=== PATIENT | female | born 1955 | race Caucasian/White ===

== ENCOUNTER 2018-08-11 16:24 | Emergency (ER) | payer OTHER ==
--- OUTSIDE RECORDS SUMMARY | 2018-08-11 16:27 | XMS REPORT | Summary of Care ---
:1955 Author Organization [facility] Address [address] [place], [place] [address]- Encounter HQ Chris_lacey(FIN) [id number] Date(s): 08/06/16 - 08/06/16 [facility] [address] [facility] [address] [address] [place] [phone] Discharge Disposition: Home or Self Care Attending Physician: Jerson Marie MD Referring Physician: Jerson Marie MD Vital Signs Most recent to oldest [Reference Range]: 1 Height 160.02 cm (08/06/16 12:57 PM) Temperature Oral [96.4-99.1 DegF] 97.8 DegF (08/06/16 12:57 PM) Blood Pressure [90-140/60-90 mmHg] 102/65 mmHg (08/06/16 12:57 PM) Peripheral Pulse Rate [60-100 bpm] 74 bpm (08/06/16 12:57 PM) Weight 71.42 kg (08/06/16 12:57 PM) Body Mass Index 27.89 m2 (08/06/16 12:57 PM) Problem List Condition Effective Dates Status Health Status Informant Degenerative cervical spinal Active stenosis(Confirmed) Diabetes mellitus type 2(Confirmed) Active Diabetes mellitus type 2(Confirmed) Active Obesity(Confirmed) Active Thrombocytopenia(Confirmed) Active Allergies, Adverse Reactions, Alerts Substance Reaction Severity Status [email or web address] Active sulfa drugs Active 1rash Medications No Known Medications Results No data available for this section Immunizations Given and Recorded Vaccine Date Status Refusal Reason influenza virus vaccine, inactivated 06/18/15 Given pneumococcal 13-valent vaccine 07/31/15 Given pneumococcal 23-valent vaccine 06/14/12 Recorded Procedures Procedure Date Related Diagnosis Body Site section1 section2 Colonoscopy Endoscopy [id number] Social History Social History Type Response Substance Abuse Use: None. Exercise 1 Alcohol Current2 Smoking Status Never smoker; Exposure to Tobacco Smoke None; Cigarette Smoking Last 365 Days No; Reg Smoking Cessation Counseling No 1Mild [id number] ALCOHOL USE Assessment and Plan No data available for this section
--- OUTSIDE RECORDS SUMMARY | 2018-08-11 16:27 | XMS REPORT | Summary of Care ---
:1955 Author Organization [facility] Address [address] [place], [place] [address]- Encounter HQ Encntr_alinaga(FIN) [id number] Date(s): 08/13/16 - 08/13/16 [facility] [address] [place] [address]- [phone] Discharge Disposition: Home or Self Care Attending Physician: Jerson Marie MD Vital Signs No data available for this section Problem List Condition Effective Dates Status Health Status Informant Degenerative cervical spinal Active stenosis(Confirmed) Diabetes mellitus type 2(Confirmed) Active Diabetes mellitus type 2(Confirmed) Active Obesity(Confirmed) Active Thrombocytopenia(Confirmed) Active Allergies, Adverse Reactions, Alerts Substance Reaction Severity Status [email or web address] Active sulfa drugs Active 1rash Medications No data available for this section Results No data available for this section Immunizations Given and Recorded Vaccine Date Status Refusal Reason influenza virus vaccine, inactivated 06/18/15 Given pneumococcal 13-valent vaccine 07/31/15 Given pneumococcal 23-valent vaccine 06/14/12 Recorded Procedures Procedure Date Related Diagnosis Body Site section1 section2 Colonoscopy Endoscopy [id number] Social History Social History Type Response Substance Abuse Use: None. Exercise 1 Alcohol Current2 Smoking Status Never smoker; Exposure to Tobacco Smoke None; Cigarette Smoking Last 365 Days No; Reg Smoking Cessation Counseling No 1Mild [id number] ALCOHOL USE Assessment and Plan No data available for this section
--- OUTSIDE RECORDS SUMMARY | 2018-08-11 16:27 | XMS REPORT | Summary of Care ---
:1955 Author Organization [facility] Address [address] [place], [place] [address]- Encounter HQ Encntr_alinaga(FIN) [id number] Date(s): 07/17/16 - 07/17/[address] [address]- [place] Discharge Disposition: Home or Self Care Attending Physician: Jerson Marie MD Referring Physician: Jerson Marie MD Vital Signs No [...] Date Related Diagnosis Body Site section1 section2 [id number] Social History Social History Type Response Substance Abuse Use: None. Exercise 1 Alcohol Current2 Smoking Status Never smoker; Exposure to Tobacco Smoke None; Cigarette Smoking Last 365 Days No; Reg Smoking Cessation Counseling No 1Mild [id number] ALCOHOL USE Assessment and Plan No data available for this section
--- OUTSIDE RECORDS SUMMARY | 2018-08-11 16:27 | XMS REPORT | Continuity of Care Document ---
:1955 Author Organization Interface Problems Problem Status Onset Classification Date Comments Source Date Reported FOLLOW UP Active 02/19/[address] Center I65.29 Active 12/30/19 [facility] [address] [place] I65.29 - OCCLUSION Active 11/26/19 [facility] AND STENOSIS OF [address] [place] UNSP Noninfective 10/28/19 01/29/2018 [facility] gastroenteritis and 18 [place] colitis, unspecified DDC // F/U VISIT Active 04/09/[address] BDDC- IRON Active 02/14/20 [facility] DEFICIENCY ANEMIA [address] [place] [address] NEW PT Active 08/28/[address] F/U Active 08/13/[address] PROCEDURE FOLLOW UP Active 07/25/[address] BDDC/ D50.9 IRON Active 06/17/20 [facility] DEFICIENCY ANEMIA, [address] [place], [place] [address]P Center ANEMIA / COLON Active 05/19/20 [facility] SCREENING [address] [place] [address] Degenerative Active Problem 03/13/2018 KAY cervical spinal [place], stenosis [facility] Diabetes mellitus Active Problem 03/13/2018 [facility] type 2 [place],[facility] Obesity Active Problem 03/13/2018 KAY [facility] Thrombocytopenia Active Problem 03/13/2018 KAY Mack,[facility] Chronic ITP (<span Active Problem 03/31/2018 [facility] ID="[id number]">C Medical onfirmed</span>) Center, [facility] Chronic diarrhea Active Problem 03/31/2018 [facility], KAY [facility] Chronic thyroiditis Active Problem 03/31/2018 [facility], KAY [facility], [facility] Liver cirrhosis Active Problem 03/31/2018 [facility], [facility] Degenerative Active Problem 03/31/2018 [facility] cervical spinal [place], stenosis Medical Group Diabetes mellitus Active Problem 03/31/2018 [facility] type 2 [place], [facility] Elevated INR Resolved Problem 03/31/2018 [facility], OPID [place], [facility] Iron deficiency Active Problem 03/31/2018 [facility] anemia [facility], [facility] [place], [facility] Obesity Active Problem 03/31/2018 [facility] [place], [facility] Thrombocytopenia Active Problem 03/31/2018 [facility] [place], [facility] Ascites Active Problem 04/02/2018 [facility] Group, [facility] [place] Chronic ITP (<span Active Problem 04/02/2018 [facility] ID="[id number]">C Medical onfirmed</span>) Center, [facility] [place], [facility] [place] Chronic diarrhea Active Problem 04/02/2018 [facility], OPID [place], [facility] [place] Chronic thyroiditis Active Problem 04/02/2018 [facility], OPID [place], [facility] [place] Liver cirrhosis Active Problem 04/02/2018 [facility], OPID [place], [facility] [place] Degenerative Active Problem 04/02/2018 [facility] cervical spinal [place], stenosis [facility] [place] Diabetes mellitus Active Problem 04/02/2018 [facility] type 2 [place], [facility] [place] Elevated INR Resolved Problem 04/02/2018 [facility], OPID [place], [facility] [place] Iron deficiency Active Problem 04/02/2018 [facility], OPID [place], [facility] [place] Obesity Active Problem 04/02/2018 [facility] [place], [facility] [place] Thrombocytopenia Active Problem 04/02/2018 [facility] [place], [facility] [place] Diverticulitis of 01/29/2018 [facility] intestine, part [place] unspecified, with perforation and abscess with bleeding Iron deficiency 01/29/2018 [facility] anemia, unspecified [place] Type 2 diabetes 01/29/2018 [facility] mellitus without [place] complications Calculus of 01/29/2018 [facility] gallbladder without [place] cholecystitis without obstruction Unspecified 01/29/2018 [facility] cirrhosis of liver [place] Diaphragmatic 01/29/2018 [facility] hernia without [place] obstruction or gangrene Splenomegaly, not 01/29/2018 [facility] elsewhere [place] classified Portal hypertension 01/29/2018 [facility] [place] Medications Medication Details Route Status Patient Ordering Order Source Instructions Provider Date sertraline 50 mg oral See Active tablet Instruction 2018 Medical s, # 90 Group tab, Refill(s) 2, TAKE 1 TABLET DAILY, [id number] empagliflozin 10 MG 10 mg=1 Active Oral Tablet tab, PO, 2018 Medical [Jardiance] QAM, # 90 Group tab, 0 Refill(s), [facility] Hydrochlorothiazide 1 tab, PO, Active 12.5 MG / irbesartan Daily, # 90 2018 Medical 300 MG Oral Tablet tab, 0 Group Refill(s), [facility]: [facility] levothyroxine 100 mcg See No (0.1 mg) oral tablet Instruction Longer 2018 Medical s, # 90 Active Group tab, TAKE 1 TABLET BY MOUTH EVERY DAY, Pharmacy: [facility]67 metFORMIN 500 mg oral See Active tablet, extended Instruction 2018 Medical release s, # 270 Group tab, Refill(s) 1, TAKE 3 TABLETS BY MOUTH EVERY DAY, [facility] benzonatate 100 MG 100 mg=1 Active Oral Capsule cap, PO, 2018 Medical [Tessalon Perles] TID, X 10 Group day, # 30 cap, 0 Refill(s), [facility] POLYETHYLENE GLYCOL 17 gm, PO, No [place] 3350 142 MG/ML Oral Bedtime, Longer 2016 Medical Solution [Miralax] Dissolve in Active Center 8 oz. of water, X 7 day, # 1 ea, 1 Refill(s), [facility]: [facility] ferrous sulfate 325 325 mg=1 Active [place] mg oral enteric tab, PO, 2017 Medical coated tablet TID, Start Center with 1 tab daily x 3 days, advance as tolerate, use stool softners and laxatives as needed for constipatio n, # 90 tab, 3 Refill(s), [facility] biotin PO, Daily, Active [place] 0 Refill(s) 2017 [facility] GoLYTELY oral powder See Active [facility] [place] for reconstitution Instruction 2016 Medical s, Take as Center directed by physician. Give jug for colonoscopy ., # 1 ea, 0 Refill(s), Pharmacy: [facility] GoLYTELY oral powder See Active 06/17/ [facility] for reconstitution Instruction 2016 Medical s, Take as Center directed by physician. Give jug for colonoscopy ., # 1 ea, 0 Refill(s), Pharmacy: [facility] Allergies, Adverse Reactions, Alerts Substance Category Reaction Severity Reaction Status Date Comments Source type Reported codeine<sup Assertion Propensity Active rash [facility] >1</sup> to adverse [place] reactions to drug sulfa drugs Assertion Drug Active [facility] allergy [place] Immunizations Immunization Date Site Status Last Comments Source Given Updated pneumococcal Left completed [place] [facility] 13-valent vaccine 5 Deltoid [place],[facility] pneumococcal Left completed [place] OPID 13-valent vaccine 5 Deltoid [place], [facility] pneumococcal Left completed [facility] 13-valent vaccine 5 Deltoid [place], [facility] [place] influenza virus Left completed [place] [facility] vaccine, 5 Deltoid [place], inactivated [facility] influenza virus Left completed [facility] OP[facility] vaccine, 5 Deltoid [place], inactivated [facility] influenza virus Left completed [facility] OPID vaccine, 5 Deltoid [place], inactivated [facility] [place] pneumococcal completed [facility] OPID 23-valent vaccine 2 [place],[facility] pneumococcal completed [facility] OPID 23-valent vaccine 2 [place], [facility] pneumococcal completed [facility] OPID 23-valent vaccine 2 [place], [facility] [place] Results Order Results Value Reference Date Interpretation Comments Source Name Range Liver w Liver w DOPPLER ULTRASOUND LIVER VESSELS 03/30 - [facility] Liver Liver /2017 - [place] vessels vessels Doppler Doppler US US HISTORY: - Cirrhosis; Read by: Jerson Grace MD Dictated Date/time: 03/30/18 15:43 Electronically Signed by: Jerson Grace MD 03/30/18 15:51 FINAL REPORT COMPARISON: CT abdomen dated 11 20 2017 TECHNIQUE: Grayscale and limited color sonographic evaluation of the liver with Doppler ultrasound of the liver vessels was performed with standard technique. FINDINGS: LIVER: The liver demonstrates mildly nodular contour and marked diffuse coarsening of the parenchymal echotexture compatible with cirrhosis. No heteroechoic liver lesions are seen, but coarsened hepatic echote xture decreases the accuracy to detect liver lesions. LIVER VESSELS: The main, right, and left portal veins show hepatopetal flow. Doppler waveform analysis shows low resistance flow in the hepatic artery. Hepatic veins are patent and demonstrate normal venous waveforms on Doppler analysis. Normal arterial flow is seen within the aorta. IVC is patent. BILE DUCTS: The intrahepatic and extrahepatic bile ducts are not dilated with the common bile duct measuring 3 mm. GALLBLADDER: Shadowing milk of calcium cholelithiasis. No gallbladder wall thickening or pericholecystic fluid. PANCREAS: The visualized pancreas body is normal, the head and tail are obscured by bowel gas. KIDNEY: The right kidney measures 11.1 x 4.1 x 4.8 cm. The left kidney measures cm. There is normal renal contour and morphology, with normal parenchymal echotexture. There is no hydronephrosis. ASCITES: No ascites is identified about the liver. IMPRESSION: 1. Anatomical changes within the liver consistent with cirrhosis. No heteroechoic liver lesions are seen, but coarsened hepatic echotexture decreases the accuracy to detect liver lesions. 2. Normal liver vessels. Portal vein hepatopedal flow. 3. Cholelithiasis. SL: [id number] Carotid Carotid EXAM: US CAROTID DOPPLER 01/15 - [facility] artery artery /2017 - [place] Doppler Doppler bilat US bilat US CLINICAL INDICATION: 62 years year-old Female with I65.29 Occlusion and stenosis of unspecified carotid artery - I65.29 Occlusion and stenosis of unspecified carotid artery Read by: Edmundo Pike MD Dictated Date/time: 01/15/18 16:03 Electronically Signed by: Edmundo Pike MD 01/15/18 16:05 FINAL REPORT COMPARISON: None TECHNIQUE: Alcaraz-scale, color Doppler and spectral Doppler of the carotid arteries was performed. Any reported ICA stenoses indirectly reference the distal internal carotid diameter as the denominator for the sten osis measurement, utilizing consensus panel criteria. FINDINGS: RIGHT: Mild plaque ICA PSV 105 cm/sec CCA PSV 81.3 cm/sec ICA/CCA ratio 1.3 Vertebral flow is antegrade. External carotid artery is patent. LEFT: Mild plaque ICA PSV 109 cm/sec CCA PSV 102 cm/sec ICA/CCA ratio 1.1 Vertebral flow is antegrade. External carotid artery is patent. IMPRESSION: 1. RIGHT: ICA stenosis <50 % by velocity criteria. 2. LEFT: ICA stenosis <50 % by velocity criteria. Consensus panel Doppler US criteria for diagnosis of ICA stenosis: Stenosis (%) ICA PSV (cm/sec) ICA/CCA ratio -- <50 <125 <2.0 50-69 125-230 2.0-4.0 >70 but less than >230 >4.0 near occlusion Near occlusion High, low, or Variable undetectable SL: [id number] Liver Abd Liver EXAM: CT ABDOMEN WITHOUT AND WITH CONTRAST 10/23 - [facility] Protocol Protocol /2018 - [place] w/wo IV w/wo IV contrast contrast CT CT DATE: 10/23/2017 Read by: Anabel Mata MD Dictated Date/time: 10/23/17 16:58 Electronically Signed by: Anabel Mata MD 10/23/17 17:09 FINAL REPORT INDICATION: Liver cirrhosis, LARIOS ADDITIONAL INFORMATION: None. COMPARISON: 11/21/2016 TECHNIQUE: Volumetric CT acquisition of the abdomen both prior to and following intravenous contrast, in precontrast, arterial, portal venous and delayed phases of enhancement, per the dynamic liver pro tocol. Axial, sagittal and coronal reconstructions. IV contrast: 100 mL Omnipaque 350 Enteric contrast: None. DLP: 2900 mGy-cm FINDINGS: Lines, tubes and hardware: None. Lower thorax: Clear. Liver: Craniocaudal length: 13.4 cm. Density: Normal. Surface: Nodular Hepatic masses: None. Non-enhancing/cystic hepatic lesions: None. Hepatic vessels: Hepatic arterial anatomy: Conventional. Arterial stenoses: None. Portal vein: Patent. Caliber: 1.2 cm Portosystemic collaterals: A recanalized umbilical vein is present. Gastroesophageal, perisplenic and pelvic collaterals are again seen. Hepatic, splenic and superior mesenteric veins, and IVC: Patent. Regional lymph nodes: Multiple borderline upper abdominal lymph nodes are noted. Biliary tree: No intra- or extrahepatic biliary ductal dilation. Gallbladder: Gallstones are noted. Pancreas: Normal. Spleen: Enlarged measuring 16.5 cm in the midclavicular line. Adrenals: Normal. 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 Focal cortical scarring is noted. The kidneys enhance symmetrically. No hydronephrosis is seen. Normal excretion of contrast is noted into normal caliber ureters. Gastrointestinal tract: Small hiatal hernia is noted. Visualized small bowel loops are normal caliber. Visualized colon is unremarkable without inflammatory changes or wall thickening. Peritoneum, mesentery and retroperitoneum: Mesenteric edema is noted, not significantly changed. There is minimal fluid in the left paracolic gutter which may represent a very small amount of ascites. Distant lymph nodes: Normal. Vasculature: Normal. Bones: No acute abnormality. Soft tissues: Normal. IMPRESSION: 1. Cirrhotic liver with stigmata of portal hypertension including splenomegaly, mesenteric edema, portosystemic collaterals and a very small amount of ascites. 2. No focal hepatic lesions are seen. 3. Cholelithiasis. 4. Small hiatal hernia. Abd Liver Abd Liver EXAM: CT ABDOMEN WITH AND WITHOUT CONTRAST 11/21 - [facility] Protocol Protocol /2016 - [place] w/wo IV w/wo IV contrast contrast CT CT DATE: 11/21/2016 at 1256 hours Read by: Ayo Moran MD Dictated Date/time: 11/21/16 14:01 Electronically Signed by: Ayo Moran MD 11/21/16 14:11 FINAL REPORT INDICATION: Cirrhosis ADDITIONAL INFORMATION: None. COMPARISON: Ultrasound dated 08/13/2016 at 1126 hours TECHNIQUE: Volumetric CT acquisition of the abdomen both prior to and following intravenous contrast, in precontrast, arterial, portal venous and delayed phases of enhancement, per the dynamic liver pro tocol. Axial, sagittal and coronal reconstructions. IV contrast: 100 mL of Omnipaque 300 Enteric contrast: None. DLP: 2218.08 mGy-cm FINDINGS: Lines, tubes and hardware: None. Lower thorax: * Minimal bibasilar atelectasis. Liver: Craniocaudal length: 14.1 cm. Density: Normal. Surface nodularity: Mild Hepatic masses: None. Non-enhancing/cystic hepatic lesions: None. Hepatic vessels: Hepatic arterial anatomy: Conventional. Arterial stenoses: None. Portal vein: Patent. Caliber: 1.2 Portosystemic collaterals are identified including gastroesophageal, pelvic and perisplenic collaterals, as well as patent umbilical vein. Hepatic, splenic and superior mesenteric veins, and IVC: Patent. Regional lymph nodes: Normal. Biliary tree: No intra- or extrahepatic biliary ductal dilation. Gallbladder: * Gallstones are identified layering dependently. * No inflammation. Pancreas: Normal. Spleen: Enlarged, measuring 16.9 x 15.5 x 7.5 cm. Adrenals: Normal. Kidneys and ureters: * Normal concentration and excretion of contrast. * Both kidneys are malrotated with anteriorly facing renal pelves. * Foci of cortical thinning are in keeping with scarring. Gastrointestinal tract: Normal caliber. Peritoneum, mesentery and retroperitoneum: * Mild to moderate mesenteric edema * No ascites. * No free air or organized fluid collections. Distant lymph nodes: Normal. Vasculature: Normal. Bones: No acute abnormality. Soft tissues: Normal. IMPRESSION: 1. Nodular hepatic contours in keeping with cirrhosis and stigmata of portal hypertension including splenomegaly, mesenteric edema, and portosystemic collaterals. 2. No focal hepatic lesions to suggest hepatocellular carcinoma (HCC). 3. Cholelithiasis without evidence of cholecystitis RECOMMENDATIONS: Continued surveillance Abdomen Abdomen INDICATION: Cirrhosis 08/13 - [facility] - [place] PROCEDURE: The right upper quadrant was evaluated with real-time imaging and color Doppler imaging. Read by: Scotty Verdin MD Dictated Date/time: 08/13/16 13:33 Electronically Signed by: Scotty Verdin MD 08/13/16 13:40 FINAL REPORT FINDINGS: The proximal body of the pancreas was unremarkable. The head and uncinate process as well as most of the tail were obscured by overlying gas. The right lobe of liver is 12.2 cm in span. The liver has increased echogenicity with no focal mass lesions. The margins remain smooth. No biliary dilatation is present. The portal vein is 1.1 cm in shay meter and has hepatopedal flow. Recanalization of the umbilical vein is noted. The common bile duct is 4.1 mm in diameter. The gallbladder wall is 1.5 mm in thickness, and the sonographic [place] sign was negative. Sludge and stones are present within the gallbladder lumen. The stones appear small and are mobile. There is no pericholecystic fluid. The right kidney is 12.2 cm in span. It has normal parenchymal echogenicity with no focal mass or cyst. There is no hydronephrosis, and perfusion is normal. No ascites was present. IMPRESSION: 1. Evidence for portal venous hypertension with recanalization of the umbilical vein. 2. Increased echogenicity within the liver likely related to underlying cirrhosis. 3. Cholelithiasis. No evidence for acute cholecystitis. Vital Signs Vital Sign Value Date Comments Source Weight 74.091 03/10/2018 [facility] BMI Calculated 29.88 03/10/2018 [facility] Height 157.48 cm 03/10/2018 [facility] Heart Rate 74 03/10/2018 [facility] Systolic (mm Hg) 106 03/10/2018 [facility] Diastolic (mm Hg) 63 03/10/2018 [facility] Respitory Rate 16 03/10/2018 [facility] BMI Calculated 32.64 01/20/2018 [facility] Weight 78.352 01/20/2018 [facility] Height 154.94 cm 01/20/2018 [facility] Respitory Rate 18 01/20/2018 [facility] Temperature Oral (F) 97.6 F 01/20/2018 [facility] Heart Rate 74 01/20/2018 [facility] Systolic (mm Hg) 149 01/20/2018 [facility] Diastolic (mm Hg) 75 01/20/2018 [facility] BMI Calculated 30.98 01/14/2018 [facility] Height 157.48 cm 01/14/2018 [facility] Weight 76.818 01/14/2018 [facility] Heart Rate 70 01/14/2018 [facility] Respitory Rate 16 01/14/2018 [facility] Systolic (mm Hg) 117 01/14/2018 [facility] Diastolic (mm Hg) 67 01/14/2018 [facility] Height 157.48 cm 11/25/2017 [facility] BMI Calculated 30.8 11/25/2017 [facility] Weight 76.381 11/25/2017 [facility] Group Systolic (mm Hg) 157 11/25/2017 [facility] Group Diastolic (mm Hg) 77 11/25/2017 [facility] Group Respitory Rate 18 11/25/2017 [facility] Group Heart Rate 73 11/25/2017 [facility] Weight 70.455 04/09/2017 [facility] BMI Calculated 27.51 04/09/2017 [facility] Height 160.02 cm 04/09/2017 [facility] Respitory Rate 16 04/09/2017 [facility] Heart Rate 63 04/09/2017 [facility] Systolic (mm Hg) 111 04/09/2017 [facility] Height 160.02 cm 11/27/2016 [facility] BMI Calculated 28.4 11/27/2016 [facility] Weight 72.727 11/27/2016 [facility] Systolic (mm Hg) 111 11/27/2016 [facility] Diastolic (mm Hg) 56 11/27/2016 [facility] Heart Rate 67 11/27/2016 [facility] Respitory Rate 16 11/27/2016 [facility] Height 160.02 cm 09/04/2016 [facility] BMI Calculated 29 09/04/2016 [facility] Weight 74.261 09/04/2016 [facility] Temperature Oral (F) 97.7 F 09/04/2016 [facility] Systolic (mm Hg) 122 09/04/2016 [facility] Diastolic (mm Hg) 71 09/04/2016 [facility] Heart Rate 70 09/04/2016 [facility] Height 160.02 cm 08/27/2016 [facility] BMI Calculated 28.67 08/27/2016 [facility] Weight 73.409 08/27/2016 [facility] Heart Rate 66 08/27/2016 [facility] Systolic (mm Hg) 19 08/27/2016 [facility] Diastolic (mm Hg) 72 08/27/2016 [facility] Height 160.02 cm 08/06/2016 [facility] Systolic (mm Hg) 102 08/06/2016 [facility] Diastolic (mm Hg) 65 08/06/2016 [facility] Temperature Oral (F) 97.8 F 08/06/2016 [facility] Heart Rate 74 08/06/2016 [facility] Weight 71.42 08/06/2016 [facility] BMI Calculated 27.89 08/06/2016 [facility] Weight 72.5 06/17/2016 [facility] BMI Calculated 28.31 06/17/2016 [facility] Heart Rate 71 06/17/2016 [facility] Temperature Oral (F) 96.7 F 06/17/2016 [facility] Height 160.02 cm 06/17/2016 [facility] Systolic (mm Hg) 118 06/17/2016 [facility] Diastolic (mm Hg) 66 06/17/2016 [facility] Encounters Location Location Encounter Encounter Reason Attending ADM DC Status Source Details Type Number For Provider Date Date Visit Outpatient [id number] KIMBERLY 07/31 Active [facility] ESP [place] Outpatient [id number] KIMBERLY 10/31 [facility] ESPER [place] Outpatient [id number] KIMBERLY 10/31 Active [facility] ESP [place] Outpatient [id number] KIMBERLY 01/28 [facility] ESP [place] Outpatient [id number] KIMBERLY 02/05 [facility] ESP [place] Outpatient [id number] KIMBERLY 04/09 [facility] ESP [place] Outpatient [id number] KIMBERLY 04/09 [facility] ESP [place] Outpatient [id number] [facility]IMBERLY 04/21 [facility] [id number] Jerson 06/17 06/18 [facility] [id number] Jerson 07/17 07/17 [facility] Outpatient [place] /2015 [facility] Outpatient [id number] Jerson 08/06 08/07 [facility] [place] [facility] [id number] Jerson 08/13 08/14 [facility] [id number] Jerson 08/27 08/28 [facility] [id number] [place] 09/04 09/05 [facility] [id number] KIMBERLY 11/10 Active [facility] Outpt Diag [id number] [place] 11/21 11/22 [facility] Outpatient Services [facility] [place] [facility] [place] [facility] [id number] [place] 11/27 12/27 [facility] [id number] [place] 03/03 03/03 [facility] Outpatient [facility] Medical [facility] Outpatient [id number] [place] 04/09 04/10 [facility] Medical EDDC [facility] Outpatient [id number] KIMBERLY 04/22 Active [facility] [place] Outpatient [id number] KIMBERLY 05/26 Active [facility] [place] Outpatient [id number] KIMBERLY 07/02 Active [facility] [place] Outpatient [id number] KIMBERLY 09/24 [facility] [place] [facility] [id number] Kimberly 09/24 09/24 Internal Pre[facility]Reg [facility] [facility] Phone [id number] 09/25 09/27 Internal Message /2017 [facility] Phone [id number] 09/28 09/30 Internal Message /2017 [facility] Outpt Diag [id number] Lewis 10/23 10/24 [facility] [id number] KIMBERLY 11/25 [facility] Outpatient [id number] Kimberly 11/25 11/26 Internal [place] /2017 [facility] Phone [phone] 12/22 12/24 Internal Message /2017 [facility] Outpatient [id number] Lewis 01/14 01/15 [facility] [id number] KIMBERLY 01/20 [facility] Outpatient [id number] Kimberly 01/20 01/21 Internal [place] /2017 [facility] Phone [phone] 01/25 01/27 Internal Message /2017 [facility] [id number] Lewis 03/10 03/11 [place] [facility] [place] /2017 [facility] Outpt Diag [id number] Lewis 03/30 03/31 [facility] [place] /2017 [place] [facility] [place] [id number] KIMBERLY 04/22 [facility] Outpatient [id number] KIMBERLY 07/[address] [place] [address] [facility] Procedures Procedure Code Date Perfomer Comments Source Date of last PAP [id number] 09/21/2016 Medical smear Group Mammogram [id number] 09/21/2016 Medical Group Date of last PAP [id number] 09/21/2016 [facility] smear [place] Mammogram [id number] 09/21/2016 [facility] [place] Date of last PAP [id number] 09/21/2016 [facility] smear [place] Mammogram [id number] 09/21/2016 [facility] [place] Date of last PAP [id number] 09/21/2016 [facility] [place] [facility] Mammogram [id number] 09/21/2016 [facility] [id number] 1981 OP[facility] section<sup>1</sup [place] > [id number] 1986 [facility] section<sup>2</sup [place] > Colonoscopy [id number] [facility] [place] Endoscopy [id number] [facility] [place] [id number] 1981 [place] [facility]<sup>[facility]sup [facility] > [id number] 1986 [place] section<sup>2</sup [facility] > Colonoscopy [id number] [facility] Endoscopy [id number] [facility] [id number] 1981 Medical section<sup>1</sup Group > [id number] 1986 Medical section<sup>2</sup Group > Colonoscopy [id number] Medical Group Endoscopy [id number] Medical Group [id number] 1981 [facility] section<sup>1</sup [place] > [id number] 1986 [facility] section<sup>2</sup [place] > Colonoscopy [id number] [facility] [place] Endoscopy [id number] [facility] [place]
--- OUTSIDE RECORDS SUMMARY | 2018-08-11 16:27 | XMS REPORT | Summary of Care ---
:1955 Author Organization [facility] Address [address] [phone]- Encounter HQ Vamshi(FIN) [id number] Date(s): 06/17/16 - 06/17/16 [facility] [address] [facility] [facility] [address] [place] [address] [phone] Discharge Disposition: Home or Self Care Attending Physician: Jerson Marie MD Referring Physician: Miroslava Owens MD Vital Signs Most recent to oldest [Reference Range]: 1 Height 160.02 cm (06/17/16 1:33 PM) Temperature Oral [96.4-99.1 DegF] 96.7 DegF (06/17/16 1:33 PM) Blood Pressure [90-140/60-90 mmHg] 118/66 mmHg (06/17/16 1:33 PM) Peripheral Pulse Rate [60-100 bpm] 71 bpm (06/17/16 1:33 PM) Weight 72.5 kg (06/17/16 1:33 PM) Body Mass Index 28.31 m2 (06/17/16 1:33 PM) Problem List Condition Effective Dates Status Health Status Informant Degenerative cervical spinal Active stenosis(Confirmed) Diabetes mellitus type 2(Confirmed) Active Diabetes mellitus type 2(Confirmed) Active Obesity(Confirmed) Active Thrombocytopenia(Confirmed) Active Allergies, Adverse Reactions, Alerts Substance Reaction Severity Status codeine1 Active sulfa drugs Active 1rash Medications GoLYTELY oral powder for reconstitution See Instructions, Take as directed by physician. Give jug for colonoscopy., # 1 ea, 0 Refill(s), Pharmacy: [facility]/pharmacy #[id number] Start Date: 06/17/16 Status: OrderedGoLYTELY oral powder for reconstitution See Instructions, Take as directed by physician. Give jug for colonoscopy., # 1 ea, 0 Refill(s), Pharmacy: [facility]/pharmacy #[id number] Start Date: 06/18/16 Status: Ordered Results No data available for this section Immunizations Given and Recorded Vaccine Date Status Refusal Reason influenza virus vaccine, inactivated 06/18/15 Given pneumococcal 13-valent vaccine 07/31/15 Given pneumococcal 23-valent vaccine 06/14/12 Recorded Procedures Procedure Date Related Diagnosis Body Site section1 section2 [id number] Social History Social History Type Response Substance Abuse Use: None. Exercise 1 Alcohol Current2 Smoking Status Never smoker; Exposure to Tobacco Smoke None; Cigarette Smoking Last 365 Days No; Reg Smoking Cessation Counseling No 1Mild [id number] ALCOHOL USE Assessment and Plan No data available for this section
--- OUTSIDE RECORDS SUMMARY | 2018-08-11 16:28 | XMS REPORT | Summary of Care ---
:1955 Author Organization [facility] Internal [facility] Address [address] [place] [address] [address] [place] [address]- Encounter HQ Chris_lacey(FIN) [id number] Date(s): 09/24/17 - 09/24/17 [facility] Internal Medicine [place] [id number] [facility] [place] [address] [place] [address]- Attending Physician: Kimberly Okeefe MD Vital Signs No data available for this section Problem List Condition Effective Dates Status Health Status Informant Chronic ITP (idiopathic Active thrombocytopenia)(Confirmed) Chronic diarrhea(Confirmed) Active Chronic thyroiditis(Confirmed) Active Liver cirrhosis secondary to Active LARIOS(Confirmed) Degenerative cervical spinal Active stenosis(Confirmed) Diabetes mellitus type 2(Confirmed) Active Diabetes mellitus type 2(Confirmed) Active Elevated INR(Confirmed) Active Iron deficiency anemia(Confirmed) Active Obesity(Confirmed) Active Thrombocytopenia(Confirmed) Active Allergies, Adverse Reactions, Alerts Substance Reaction Severity Status sulfa drugs Active codeine1 Active 1rash Medications No data available for this section Results No data available for this section Immunizations Given and Recorded Vaccine Date Status Refusal Reason pneumococcal 13-valent vaccine 07/31/15 Given influenza virus vaccine, inactivated 06/18/15 Given pneumococcal 23-valent vaccine 06/14/12 Recorded Procedures Procedure Date Related Diagnosis Body Site section1 section2 Colonoscopy Endoscopy [id number] Social History Social History Type Response Substance Abuse Use: None. Exercise 1 Alcohol Past2 Smoking Status Never smoker; Exposure to Tobacco Smoke None; Cigarette Smoking Last 365 Days No; Reg Smoking Cessation Counseling No 1Mild [id number] ALCOHOL USE Assessment and Plan No data available for this section
--- OUTSIDE RECORDS SUMMARY | 2018-08-11 16:28 | XMS REPORT | Summary of Care ---
:1955 Author Organization [facility] Internal Medicine [facility] Address [address] [place] [address], [address] [place] [address]- Encounter HQ Chris_lacey(FIN) [id number] Date(s): 09/28/17 - 09/29/17 [facility] Internal Medicine [facility] [address] [facility] [place] [address]- Vital Signs No data available for this section Problem List Condition Effective Dates Status Health Status Informant Chronic ITP (idiopathic Active thrombocytopenia)(Confirmed) Chronic diarrhea(Confirmed) Active Chronic thyroiditis(Confirmed) Active Liver cirrhosis secondary to Active LARIOS(Confirmed) Degenerative cervical spinal Active stenosis(Confirmed) Diabetes mellitus type 2(Confirmed) Active Diabetes mellitus type 2(Confirmed) Active Elevated INR(Confirmed) Resolved Iron deficiency anemia(Confirmed) Active Obesity(Confirmed) Active Thrombocytopenia(Confirmed) Active Allergies, Adverse Reactions, Alerts Substance Reaction Severity Status sulfa drugs Active codeine1 Active 1rash Medications levothyroxine 100 mcg (0.1 mg) oral tablet See Instructions, # 90 tab, TAKE 1 TABLET BY MOUTH EVERY DAY, Pharmacy: [facility] #[id number] Start Date: 09/28/17 Stop Date: 12/01/17 Status: CompletedmetFORMIN 500 mg oral tablet, extended release See Instructions, # 270 tab, Refill(s) 1, TAKE 3 TABLETS BY MOUTH EVERY DAY, [id number] Start Date: 09/28/17 Status: Ordered Results No data available for this section Immunizations Given and Recorded Vaccine Date Status Refusal Reason pneumococcal 13-valent vaccine 07/31/15 Given influenza virus vaccine, inactivated 06/18/15 Given pneumococcal 23-valent vaccine 06/14/12 Recorded Procedures Procedure Date Related Diagnosis Body Site Status Date of last PAP smear 09/2016 Completed Mammogram 09/2016 Completed section1 Completed section2 Completed Colonoscopy Completed Endoscopy Completed [id number] Social History Social History Type Response Substance Abuse Use: None. Exercise 1 Alcohol Past2 Smoking Status Never smoker; Exposure to Tobacco Smoke None; Cigarette Smoking Last 365 Days No; Reg Smoking Cessation Counseling No entered on: 11/25/17 1Mild [id number] ALCOHOL USE Assessment and Plan No data available for this section
--- OUTSIDE RECORDS SUMMARY | 2018-08-11 16:28 | XMS REPORT | Summary of Care ---
:1955 Author Organization [facility] Internal Medicine [facility] Address [address] [place] [address], [address] [place] [address]- Encounter HQ Chris_lacey(FIN) [id number] Date(s): 09/28/17 - 09/29/17 [facility] Internal Medicine [facility] [address] [place] [address]- Vital Signs No data available for this [...] 1 TABLET BY MOUTH EVERY DAY, [facility]acy[id number] Start Date: 09/28/17 Status: OrderedmetFORMIN 500 mg oral tablet, extended release See Instructions, # 270 tab, Refill(s) 1, TAKE 3 TABLETS BY MOUTH EVERY DAY, [id number] Start Date: 09/28/17 Status: Ordered Results No data available for this section Immunizations Given and Recorded Vaccine Date Status Refusal Reason pneumococcal 13-valent vaccine 07/31/15 Given influenza virus vaccine, inactivated 06/18/15 Given pneumococcal 23-valent vaccine 06/14/12 Recorded Procedures Procedure Date Related Diagnosis Body Site Status section1 Completed section2 Completed Colonoscopy Completed Endoscopy Completed [id number] Social History Social History Type Response Substance Abuse Use: None. Exercise 1 Alcohol Past2 Smoking Status Never smoker; Exposure to Tobacco Smoke None; Cigarette Smoking Last 365 Days No; Reg Smoking Cessation Counseling No entered on: 04/22/17 1Mild [id number] ALCOHOL USE Assessment and Plan No data available for this section
--- OUTSIDE RECORDS SUMMARY | 2018-08-11 16:28 | XMS REPORT | Summary of Care ---
:1955 Author Organization [facility] [place] Address [address] [place], [place] [address]- Encounter HQ Mary Jontr_lacey(FIN) [id number] Date(s): 11/21/16 - 11/21/16 [facility] [place] [address] [place] [address]- [phone] Discharge Disposition: Home or Self Care Attending Physician: Lewis Sue MD Vital Signs No data available for [...] Diagnosis Body Site section1 section2 Colonoscopy Endoscopy [id number] Social History Social History Type Response Substance Abuse Use: None. Exercise 1 Alcohol Current2 Smoking Status Never smoker; Exposure to Tobacco Smoke None; Cigarette Smoking Last 365 Days No; Reg Smoking Cessation Counseling No 1Mild [id number] ALCOHOL USE Assessment and Plan No data available for this section
--- OUTSIDE RECORDS SUMMARY | 2018-08-11 16:28 | XMS REPORT | Summary of Care ---
:1955 Author Organization [facility] Address [address] [place], [place] [address]- Encounter HQ Vamshi(FIN) [id number] Date(s): 01/14/18 - 01/14/18 [facility] [address] [facility] [address] [place] [address] [phone] Discharge Disposition: Home or Self Care Attending Physician: Lewis Sue MD Referring Physician: Lewis Sue MD Vital Signs Most recent to oldest [Reference Range]: 1 Height 157.48 cm (01/14/18 1:59 PM) Blood Pressure [90-140/60-90 mmHg] 117/67 mmHg (01/14/18 1:59 PM) Respiratory Rate [14-20 BRMIN] 16 BRMIN (01/14/18 1:59 PM) Peripheral Pulse Rate [60-100 bpm] 70 bpm (01/14/18 1:59 PM) Weight 76.818 kg (01/14/18 1:59 PM) Body Mass Index 30.98 m2 (01/14/18 1:59 PM) Problem List Condition Effective Dates Status [...] drugs Active codeine1 Active 1rash Medications No Known Medications Results [...] Completed section2 Completed Colonoscopy Completed Endoscopy Completed [id number] Social History Social History Type Response Substance Abuse Use: None. Exercise 1 Alcohol Past2 Smoking Status Never smoker; Exposure to Tobacco Smoke None; Cigarette Smoking Last 365 Days No; Reg Smoking Cessation Counseling No entered on: 01/14/18 1Mild [id number] ALCOHOL USE Assessment and Plan No data available for this section
--- OUTSIDE RECORDS SUMMARY | 2018-08-11 16:28 | XMS REPORT | Summary of Care ---
:1955 Author Organization [facility] Address [address] [phone]- Encounter HQ Mary Jontr_lacey(FIN) [id number] Date(s): 09/04/16 - 09/04/16 [facility] [address] [facility] [address] [place] [address]- [phone] Discharge Disposition: Home or Self Care Attending Physician: Lewis Sue MD Referring Physician: Lewis Sue MD Vital Signs Most recent to oldest [Reference Range]: 1 Height 160.02 cm (09/04/16 1:04 PM) Temperature Oral [96.4-99.1 DegF] 97.7 DegF (09/04/16 1:04 PM) Blood Pressure [90-140/60-90 mmHg] 122/71 mmHg (09/04/16 1:04 PM) Peripheral Pulse Rate [60-100 bpm] 70 bpm (09/04/16 1:04 PM) Weight 74.261 kg (09/04/16 1:04 PM) Body Mass Index 29 m2 (09/04/16 1:04 PM) Problem List Condition Effective Dates Status [...] Diagnosis Body Site section1 section2 Colonoscopy Endoscopy [id number] Social History Social History Type Response Substance Abuse Use: None. Exercise 1 Alcohol Current2 Smoking Status Never smoker; Exposure to Tobacco Smoke None; Cigarette Smoking Last 365 Days No; Reg Smoking Cessation Counseling No 1Mild [id number] ALCOHOL USE Assessment and Plan No data available for this section
--- OUTSIDE RECORDS SUMMARY | 2018-08-11 16:28 | XMS REPORT | Summary of Care ---
:1955 Author Organization [facility] Address [address] [phone]- Encounter HQ Vamshi(EVY) [id number] Date(s): 11/27/16 - 12/26/16 [facility] [address] [facility] [address] [place] [address] [phone] Discharge Disposition: Home or Self Care Attending Physician: Lewis Sue MD Referring Physician: Lewis Sue MD Vital Signs Most recent to oldest [Reference Range]: 1 Height 160.02 cm (11/27/16 3:35 PM) Blood Pressure [90-140/60-90 mmHg] 111/56 mmHg (11/27/16 3:35 PM) Respiratory Rate [14-20 BRMIN] 16 BRMIN (11/27/16 3:35 PM) Peripheral Pulse Rate [60-100 bpm] 67 bpm (11/27/16 3:35 PM) Weight 72.727 kg (11/27/16 3:35 PM) Body Mass Index 28.4 m2 (11/27/16 3:35 PM) Problem List Condition Effective Dates Status [...] codeine1 Active sulfa drugs Active 1rash Medications biotin PO, Daily, 0 Refill(s) Start Date: 11/27/16 Status: Orderedferrous sulfate 325 mg oral enteric coated tablet 325 mg=1 tab, PO, TID, Start with 1 tab daily x 3 days, advance as tolerate, use stool softners and laxatives as needed for constipation, # 90 tab, 3 Refill( s), Pharmacy: [facility]/pharmacy #[id number] Start Date: 11/27/16 Status: OrderedMiraLax oral powder for reconstitution 17 gm, PO, Bedtime, Dissolve in 8 oz. of water, X 7 day, # 1 ea, 1 Refill(s), Pharmacy: [facility]/pharmacy#[id number] Start Date: 11/27/16 Stop Date: 12/11/16 Status: Completed Results No data available for this section Immunizations Given and Recorded Vaccine Date Status Refusal Reason influenza virus vaccine, inactivated 06/18/15 Given pneumococcal 13-valent vaccine 07/31/15 Given pneumococcal 23-valent vaccine 06/14/12 Recorded Procedures Procedure Date Related Diagnosis Body Site section1 section2 Colonoscopy Endoscopy [id number] Social History Social History Type Response Substance Abuse Use: None. Exercise 1 Alcohol Past2 Smoking Status Never smoker; Exposure to Tobacco Smoke None; Cigarette Smoking Last 365 Days No; Reg Smoking Cessation Counseling No 1Mild [id number] ALCOHOL USE Assessment and Plan No data available for this section
--- OUTSIDE RECORDS SUMMARY | 2018-08-11 16:28 | XMS REPORT | Summary of Care ---
:1955 Author Organization [facility] Address [address] [place], [place] [address]- Encounter HQ Encntr_alinaga(FIN) [id number] Date(s): 03/03/17 - 03/03/[address] [address]- [place] Discharge Disposition: Home or Self Care Attending Physician: Lewis Sue MD Referring Physician: Lewis Sue MD Vital Signs No [...] Diagnosis Body Site section1 section2 Colonoscopy Endoscopy [id number] Social History Social History Type Response Substance Abuse Use: None. Exercise 1 Alcohol Past2 Smoking Status Never smoker; Exposure to Tobacco Smoke None; Cigarette Smoking Last 365 Days No; Reg Smoking Cessation Counseling No 1Mild [email or web address] ALCOHOL USE Assessment and Plan No data available for this section
--- OUTSIDE RECORDS SUMMARY | 2018-08-11 16:28 | XMS REPORT | Summary of Care ---
:1955 Author Organization [facility] Address [address] [phone]- Encounter HQ Chris_lacey(FIN) [id number] Date(s): 04/09/17 - 04/09/17 [facility] [address] [facility] [address] [place] [address] [phone] Discharge Disposition: Home or Self Care Attending Physician: Lewis Sue MD Referring Physician: Lewis Sue MD Vital Signs Most recent to oldest [Reference Range]: 1 Height 160.02 cm (04/09/17 1:29 PM) Systolic Blood Pressure [90-140 mmHg] 111 mmHg (04/09/17 1:29 PM) Respiratory Rate [14-20 BRMIN] 16 BRMIN (04/09/17 1:29 PM) Peripheral Pulse Rate [60-100 bpm] 63 bpm (04/09/17 1:29 PM) Weight 70.455 kg (04/09/17 1:29 PM) Body Mass Index 27.51 m2 (04/09/17 1:29 PM) Problem List Condition Effective Dates Status [...] Diagnosis Body Site section1 section2 Colonoscopy Endoscopy [id number] Social History Social History Type Response Substance Abuse Use: None. Exercise 1 Alcohol Past2 Smoking Status Never smoker; Exposure to Tobacco Smoke None; Cigarette Smoking Last 365 Days No; Reg Smoking Cessation Counseling No 1Mild [id number] ALCOHOL USE Assessment and Plan No data available for this section
--- OUTSIDE RECORDS SUMMARY | 2018-08-11 16:28 | XMS REPORT | Summary of Care ---
:1955 Author Organization [facility] Internal Medicine [facility] Address [address] [place] [address], [facility] [address] [place] [address]- Encounter HQ Chris_lacey(FIN) [id number] Date(s): 01/20/18 - 01/20/18 [facility] Internal Medicine [facility] [address] [facility] [place] [address]- [phone] Discharge Disposition: Home or Self Care Attending Physician: Kimberly Okeefe MD Vital Signs Most recent to oldest [Reference Range]: 1 Height 154.94 cm (01/20/18 1:28 PM) Temperature Oral [96.4-99.1 DegF] 97.6 DegF (01/20/18 1:28 PM) Blood Pressure [90-140/60-90 mmHg] 149/75 mmHg *HI* (01/20/18 1:28 PM) Respiratory Rate [14-20 BRMIN] 18 BRMIN (01/20/18 1:28 PM) Peripheral Pulse Rate [60-100 bpm] 74 bpm (01/20/18 1:28 PM) Weight 78.352 kg (01/20/18 1:28 PM) Body Mass Index 32.64 m2 (01/20/18 1:28 PM) Problem List Condition Effective Dates Status Health Status Informant Ascites(Confirmed) Active Chronic ITP (idiopathic Active thrombocytopenia)(Confirmed) Chronic diarrhea(Confirmed) Active Chronic thyroiditis(Confirmed) Active Liver cirrhosis secondary to Active LARIOS(Confirmed) Degenerative cervical spinal Active stenosis(Confirmed) Diabetes mellitus type 2(Confirmed) Active Diabetes mellitus type 2(Confirmed) Active Elevated INR(Confirmed) Resolved Iron deficiency anemia(Confirmed) Active Obesity(Confirmed) Active Thrombocytopenia(Confirmed) Active Allergies, Adverse Reactions, Alerts Substance Reaction Severity Status sulfa drugs Active codeine1 Active 1rash Medications hydrochlorothiazide-irbesartan 12.5 mg-300 mg oral tablet 1 tab, PO, Daily, # 90 tab, 0 Refill(s), Pharmacy: [facility]/pharmacy #[id number] Start Date: 01/20/18 Status: OrderedJardiance 10 mg oral tablet 10 mg=1 tab, PO, QAM, # 90 tab, 0 Refill(s), [id number] Start Date: 01/20/18 Status: Ordered Results No data available for this section Immunizations Given and Recorded Vaccine Date Status Refusal Reason pneumococcal 13-valent vaccine 07/31/15 Given influenza virus vaccine, inactivated 06/18/15 Given pneumococcal 23-valent vaccine 06/14/12 Recorded Procedures Procedure Date Related Diagnosis Body Site Status Date of last PAP smear 09/2016 Completed Mammogram 09/2016 Completed section1 Completed section2 Completed Colonoscopy Completed Endoscopy Completed [id number] Social History Social History Type Response Substance Abuse Use: None. Exercise 1 Alcohol Past2 Smoking Status Never smoker; Exposure to Tobacco Smoke None; Cigarette Smoking Last 365 Days No; Reg Smoking Cessation Counseling No entered on: 01/20/18 1Mild [id number] ALCOHOL USE Assessment and Plan No data available for this section
--- OUTSIDE RECORDS SUMMARY | 2018-08-11 16:28 | XMS REPORT | Summary of Care ---
:1955 Author Organization [facility] Address [address] [phone]- Encounter HQ Vamshi(FIN) [id number] Date(s): 08/27/16 - 08/27/16 [facility] [address] [facility] [address] [phone] Discharge Disposition: Home or Self Care Attending Physician: Jerson Marie MD Referring Physician: Jerson Marie MD Vital Signs Most recent to oldest [Reference Range]: 1 Height 160.02 cm (08/27/16 3:21 PM) Blood Pressure [90-140/60-90 mmHg] 19/72 mmHg *LOW* (08/27/16 3:21 PM) Peripheral Pulse Rate [60-100 bpm] 66 bpm (08/27/16 3:21 PM) Weight 73.409 kg (08/27/16 3:21 PM) Body Mass Index 28.67 m2 (08/27/16 3:21 PM) Problem List Condition Effective Dates Status [...] Diagnosis Body Site section1 section2 Colonoscopy Endoscopy [id number] Social History Social History Type Response Substance Abuse Use: None. Exercise 1 Alcohol Current2 Smoking Status Never smoker; Exposure to Tobacco Smoke None; Cigarette Smoking Last 365 Days No; Reg Smoking Cessation Counseling No 1Mild [id number] ALCOHOL USE Assessment and Plan No data available for this section
--- OUTSIDE RECORDS SUMMARY | 2018-08-11 16:28 | XMS REPORT | Summary of Care ---
:1955 Author Organization [facility] [place] [facility] [place] [address] [place] [address] [address] [place] [address]- Encounter HQ Chris_lacey(FIN) [id number] Date(s): 09/25/17 - 09/26/17 [facility] Internal Medicine [place] [id number] [facility] [place] [address]- [phone] Vital Signs No data available for this [...] sulfa drugs Active codeine1 Active 1rash Medications Tessalon Perles 100 mg oral capsule 100 mg=1 cap, PO, TID, X 10 day, # 30 cap, 0 Refill(s), Pharmacy: [facility]/pharmacy # [id number] Start Date: 09/25/17 Stop Date: 10/05/17 Status: Ordered Results No data available for this section Immunizations Given and Recorded Vaccine Date Status Refusal Reason pneumococcal 13-valent vaccine 07/31/15 Given influenza virus vaccine, inactivated 06/18/15 Given pneumococcal 23-valent vaccine 06/14/12 Recorded Procedures Procedure Date Related Diagnosis Body Site section1 section2 Colonoscopy Endoscopy [id number] Social History Social History Type Response Substance Abuse Use: None. Exercise 1 Alcohol Past2 Smoking Status Never smoker; Exposure to Tobacco Smoke None; Cigarette Smoking Last 365 Days No; Reg Smoking Cessation Counseling No 1Mild [id number] ALCOHOL USE Assessment and Plan No data available for this section
--- OUTSIDE RECORDS SUMMARY | 2018-08-11 16:29 | XMS REPORT | Summary of Care ---
:1955 Author Organization [facility] Internal Medicine [facility] Address [address] [place] [address], [address] [place] [address]- Encounter HQ Chris_lacey(FIN) [id number] Date(s): 01/25/18 - 01/26/18 [facility] Internal Medicine [facility] [address] [facility] [place] [address]- Vital Signs No data available for this [...] sulfa drugs Active codeine1 Active 1rash Medications sertraline 50 mg oral tablet See Instructions, # 90 tab, Refill(s) 2, TAKE 1 TABLET DAILY, Pharmacy: [facility]/ pharmacy #[id number] Start Date: 01/25/18 Status: Ordered Results No data available for this section Immunizations Given and Recorded Vaccine Date Status Refusal Reason pneumococcal 13-valent vaccine 07/31/15 Given influenza virus vaccine, inactivated 06/18/15 Given pneumococcal 23-valent vaccine 06/14/12 Recorded Procedures Procedure Date Related Diagnosis Body Site Status Date of last PAP smear 09/2016 Completed Mammogram 09/2016 Completed section1 Completed section2 Completed Colonoscopy Completed Endoscopy Completed [id number] Social History Social History Type Response Substance Abuse Use: None. Exercise 1 Alcohol Past2 Smoking Status Never smoker; Exposure to Tobacco Smoke None; Cigarette Smoking Last 365 Days No; Reg Smoking Cessation Counseling No entered on: 01/20/18 1Mild [id number] ALCOHOL USE Assessment and Plan No data available for this section
--- OUTSIDE RECORDS SUMMARY | 2018-08-11 16:29 | XMS REPORT | Summary of Care ---
:1955 Author Organization [facility] Outpatient Imaging [place] Address [address] [place] [address]- Encounter HQ Encntr_alinaga(FIN) [id number] Date(s): 10/23/17 - 10/23/17 [facility] Outpatient Imaging [address] [address]- [phone] Encounter Diagnosis Noninfective gastroenteritis and colitis, unspecified (Final) - 10/27/17 Diverticulitis of intestine, part unspecified, with perforation and abscess with bleeding (Final) - Iron deficiency anemia, unspecified (Final) - Type 2 diabetes mellitus without complications (Final) - Calculus of gallbladder without cholecystitis without obstruction (Final) - Unspecified cirrhosis of liver (Final) - Diaphragmatic hernia without obstruction or gangrene (Final) - Splenomegaly, not elsewhere classified (Final) - Portal hypertension (Final) - Discharge Disposition: Home or Self Care Attending [...] Completed section2 Completed Colonoscopy Completed Endoscopy Completed [id number] Social History Social History Type Response Substance Abuse Use: None. Exercise 1 Alcohol Past2 Smoking Status Never smoker; Exposure to Tobacco Smoke None; Cigarette Smoking Last 365 Days No; Reg Smoking Cessation Counseling No entered on: 01/20/18 1Mild [id number] ALCOHOL USE Assessment and Plan No data available for this section
--- OUTSIDE RECORDS SUMMARY | 2018-08-11 16:29 | XMS REPORT | Summary of Care ---
:1955 Author Organization [facility] Address [address] [id number]- Encounter HQ Vamshi(FIN) [id number] Date(s): 03/10/18 - 03/10/18 [facility] [address] [facility] [address] [place] [address] [phone] Discharge Disposition: Home or Self Care Attending Physician: Lewis Gilmore MD Referring Physician: Lewis Gilmore MD Vital Signs Most recent to oldest [Reference Range]: 1 Height 157.48 cm (03/10/18 10:33 AM) Blood Pressure [90-140/60-90 mmHg] 106/63 mmHg (03/10/18 10:33 AM) Respiratory Rate [14-20 BRMIN] 16 BRMIN (03/10/18 10:33 AM) Peripheral Pulse Rate [60-100 bpm] 74 bpm (03/10/18 10:33 AM) Weight 74.091 kg (03/10/18 10:33 AM) Body Mass Index 29.88 m2 (03/10/18 10:33 AM) Problem List Condition Effective Dates Status Health [...] Completed section2 Completed Colonoscopy Completed Endoscopy Completed [id number] Social History Social History Type Response Substance Abuse Use: None. Exercise 1 Alcohol Past2 Smoking Status Never smoker; Exposure to Tobacco Smoke None; Cigarette Smoking Last 365 Days No; Reg Smoking Cessation Counseling No entered on: 03/10/18 1Mild [email or web address] ALCOHOL USE Assessment and Plan No data available for this section
--- OUTSIDE RECORDS SUMMARY | 2018-08-11 16:29 | XMS REPORT | Summary of Care ---
:1955 Author Organization [facility] Internal Medicine [facility] Address [address] [place] [address], [facility] [address] [place] [address]- Encounter HQ Vamshi(FIN) [id number] Date(s): 11/25/17 - 11/25/17 [facility] Internal Medicine [facility] [address] [facility] [place] [address]- Discharge Disposition: Home or Self Care Attending Physician: Kimberly Okeefe MD Vital Signs Most recent to oldest [Reference Range]: 1 Height 157.48 cm (11/25/17 1:16 PM) Blood Pressure [90-140/60-90 mmHg] 157/77 mmHg *HI* (11/25/17 1:16 PM) Respiratory Rate [14-20 BRMIN] 18 BRMIN (11/25/17 1:16 PM) Peripheral Pulse Rate [60-100 bpm] 73 bpm (11/25/17 1:16 PM) Weight 76.381 kg (11/25/17 1:16 PM) Body Mass Index 30.8 m2 (11/25/17 1:16 PM) Problem List Condition Effective Dates Status [...] Completed section2 Completed Colonoscopy Completed Endoscopy Completed [id number] Social History Social History Type Response Substance Abuse Use: None. Exercise 1 Alcohol Past2 Smoking Status Never smoker; Exposure to Tobacco Smoke None; Cigarette Smoking Last 365 Days No; Reg Smoking Cessation Counseling No entered on: 01/20/18 1Mild [email or web address] ALCOHOL USE Assessment and Plan No data available for this section
--- OUTSIDE RECORDS SUMMARY | 2018-08-11 16:29 | XMS REPORT | Summary of Care ---
:1955 Author Organization [facility] Internal [place] [facility] [place] [address] [facility], [address] [place] [address]- Encounter HQ Mary Jontr_lacey(FIN) [id number] Date(s): 12/22/17 - 12/23/17 [facility] Internal [place] [facility] [address] [facility] [place] [address]- Vital Signs No data available for this [...] Completed section2 Completed Colonoscopy Completed Endoscopy Completed [id number] Social History Social History Type Response Substance Abuse Use: None. Exercise 1 Alcohol Past2 Smoking Status Never smoker; Exposure to Tobacco Smoke None; Cigarette Smoking Last 365 Days No; Reg Smoking Cessation Counseling No entered on: 03/10/18 1Mild [id number] ALCOHOL USE Assessment and Plan No data available for this section
--- OUTSIDE RECORDS SUMMARY | 2018-08-11 16:29 | XMS REPORT | Summary of Care ---
:1955 Author Organization [facility] Outpatient Imaging [place] Address [facility] [place], [place] [address]- Encounter HQ Mary Jontr_lacey(FIN) [id number] Date(s): 03/30/18 - 03/30/18 [facility] Outpatient Imaging [address], [address] [place] [address]- [phone] Discharge Disposition: Home or Self Care Attending [...] Completed section2 Completed Colonoscopy Completed Endoscopy Completed [id number] Social History Social History Type Response Substance Abuse Use: None. Exercise 1 Alcohol Past2 Smoking Status Never smoker; Exposure to Tobacco Smoke None; Cigarette Smoking Last 365 Days No; Reg Smoking Cessation Counseling No entered on: 03/10/18 1Mild [id number] ALCOHOL USE Assessment and Plan No data available for this section
--- OUTSIDE RECORDS SUMMARY | 2018-08-11 16:29 | XMS REPORT | Summary of Care ---
:1955 Author Organization [facility] Internal Medicine [facility] Address [address] [place] [address], [address] [place] [address]- Encounter HQ Chris_lacey(FIN) [id number] Date(s): 01/20/18 - 01/20/18 [facility] Internal Medicine [facility] [address] [facility] [place] [address]- Discharge Disposition: Home or Self Care Attending [...] Daily, # 90 tab, 0 Refill(s), Pharmacy: [facility]/pharmacy #[id number] Start Date: 01/20/18 Status: OrderedJardiance 10 mg oral tablet 10 mg=1 tab, PO, QAM, # 90 tab, 0 Refill(s), [id number] Start Date: 01/20/18 Status: Ordered [...] Completed section2 Completed Colonoscopy Completed Endoscopy Completed [id number] Social History Social History Type Response Substance Abuse Use: None. Exercise 1 Alcohol Past2 Smoking Status Never smoker; Exposure to Tobacco Smoke None; Cigarette Smoking Last 365 Days No; Reg Smoking Cessation Counseling No entered on: 01/20/18 1Mild [id number] ALCOHOL USE Assessment and Plan No data available for this section
[2018-08-11] MEDS ORDERED: ACETAMINOPHEN 500 MG TAB ONE ×2 (17:35→19:29)
[2018-08-11] MEDS ORDERED: NA CHLORIDE 0.9% 2,000 ML ONE (17:36)
[2018-08-11] MEDS ORDERED: IBUPROFEN 200 MG TAB PO ONE (17:52)
[2018-08-11] MEDS ORDERED: IBUPROFEN 400 MG TAB ONE (17:52)
[2018-08-11] MEDS ORDERED: ONDANSETRON 4 MG/2 ML VIAL ONE ×3 (17:52→21:09)
[2018-08-11] MEDS ORDERED: MORPHINE 4 MG/ML SYR ONE ×2 (17:52→19:16)
[2018-08-11 17:59] LABS: Absolute Lymphocytes (CBC) 0.2 K/uL (0.7-4.9); Absolute Monocytes 0.4 K/uL (0.1-1.3); Absolute Neutrophil 9.6 K/uL (1.8-8.0); Basophils % 0.1 % (0-1.3); Hematocrit 30.3 % (36.0-45.0); Lymphocytes % 2.4 % (15.3-44.8); MCH 30.2 pg (27.0-35.0); MCV 87.7 fL (80-100); MPV 9.5 fL (7.6-11.3); Monocytes % 3.7 % (3.3-12.3); RBC Red Blood Cell Count 3.45 M/uL (3.86-4.86)
[2018-08-11 18:00] LABS: Protime INR 2.05
[2018-08-11 18:08] LABS: ALT/SGPT 40 U/L (12-78); AST/SGOT 37 U/L (15-37); Albumin 3.5 g/dL (3.4-5.0); Alkaline Phosphatase 63 U/L (45-117); BUN Blood Urea Nitrogen 37 mg/dL (7-18); Bicarbonate 22 mmol/L (21-32); Bilirubin Direct 0.4 mg/dL (0-0.2); Bilirubin Total 0.9 mg/dL (0.2-1.0); CKMB Creatine Kinase MB 1.1 ng/mL (0.3-3.6); Creatine Phosphokinase 223 U/L (26-192); Glucose Level 151 mg/dL (74-106); Lipase 309 U/L (73-393); Potassium 3.7 mmol/L (3.5-5.1); Protein, Total 7.2 g/dL (6.4-8.2); Sodium Level 131 mmol/L (136-145); Troponin (Emerg Dept Use Only) < 0.02 ng/mL (0.0-0.045)
[2018-08-11 18:28] LABS: Blood Morphology Comment NOT SEEN (NOT SEEN); Platelet Estimate DECR; Urine White Blood Cell Casts OK
[2018-08-11] MEDS ORDERED: PIPER/TAZO/NS 3.375gm 3.375 GM/100 ML BAG ONE (18:37)
[2018-08-11] MEDS ORDERED: VANCOMYCIN 1 GM/250 ML BAG ONE (18:37)
--- NOTE | 2018-08-11 18:50 | RAD REPORT ---
EXAM DESCRIPTION: US - Extremity Venous Uni Ltd - 08/11/2018 6:32 pm CLINICAL HISTORY: Pain;Swelling Leg swelling and edema. COMPARISON: No comparisons FINDINGS: Left lower extremity venous system was interrogated with Doppler technique. Normal flow, c ompressibility and augmentation was noted. There is no DVT present. IMPRESSION: No evidence of left lower extremity deep venous thrombosis.
--- NOTE | 2018-08-11 19:00 | RAD REPORT ---
EXAM DESCRIPTION: CT - Stone Protocol - 08/11/2018 6:48 pm CLINICAL HISTORY: Flank pain. GI BLEED COMPARISON: Extremity Venous Uni Ltd dated 08/11/2018 TECHNIQUE: Axial images were obtained without oral or IV contrast. Lack of contrast limits solid org an and vascular assessment. The [id number] spans the entirety of the system partially obscuring uppermost abdomen and lung bases. Coronal reformatted images were obtained and reviewed. All CT scans are performed using dose optimization technique as appropriate and may include automated exposure control or mA/KV adjustment according to patient size. FINDINGS: The lower lung melo are clear. Nodular liver contour is present compatible with cirrhosis. Moderate splenomegaly seen.Cholelithiasis is present. The pancreas and adrenal glands are normal. No pathologic lymphadenopathy in the abdomen or pelvis. No urinary tract stones or obstructive uropathy. No bowel obstruction, free air, free fluid or abscess. The appendix is not identified as a discrete s tructure, however, no secondary findings of appendicitis are identified. Prominent lymph nodes with f at stranding noted in the left inguinal region. No significant bony abnormality. IMPRESSION: Mild liver cirrhosis with splenomegaly. Cholelithiasis. Inflammatory fat stranding in the left inguinal region with prominent lymph nodes, possibly reactive in etiology.
[2018-08-11] MEDS ORDERED: FENTANYL CITR 100 MCG/2 ML ONE (19:02)
--- NOTE | 2018-08-11 19:58 | EDPHYS ---
Physician Documentation [facility] Name: Leigh Hammonds Age: 62 yrs Sex: Female : 1955 Arrival Date: 08/11/2018 Time: 16:29 Bed 15 Private MD: out of town, doctor ED Physician Kwaku Sanz HPI: 08/11 19:25 This 62 yrs old Female presents to ER via Wheelchair with complaints of Flu kb Symptoms, Leg Swelling. 19:25 The patient presents with cellulitis of the left choudhury and medial aspect of left calf kb and left calf and lateral aspect of left calf. Description: erythematous, hot, swollen, warm. Onset: The symptoms/episode began/occurred yesterday. Possible cause(s): unknown. Associated signs and symptoms: Pertinent positives: erythema, fever, nausea, swelling, vomiting, Pertinent negatives: discharge, drainage, foreign body sensation, headache, shortness of breath. Modifying factors: the symptoms are alleviated by nothing, the symptoms are aggravated by walking, pressure, touching. Severity of symptoms: At their worst the symptoms were moderate, severe, in the emergency department the symptoms are unchanged. The patient has not experienced similar symptoms in the past. The patient has not recently seen a physician. Pt reports nausea, vomiting and diarrhea that started on Thursday. Body aches and fever started late Thursday night, early Thursday morning. Left lower leg started hurting Thursday afternoon and fever was worse (103). Today had an episode of dark stool, fever, increasing leg pain with swelling and redness. . Historical: - Allergies: 16:55 Codeine; aj1 - Home Meds: 16:55 trulisity for Diabetes [Active]; metformin 1500 mg Oral tab 2 tabs 2 times per day aj1 [Active]; levothyroxine 100 mcg oral tab [Active]; Avalide 150-12.5 mg Oral tab 1 tab once daily [Active]; - PMHx: 16:55 Diabetes - NIDDM; Hypertension; Hypothyroidism; aj1 16:56 Cirrhosis; aj1 - Immunization history:: Flu vaccine is up to date. - Social history:: Smoking status: Patient/guardian denies using tobacco. - Ebola Screening: : Patient denies travel to an Ebola-affected area in the 21 days before illness onset. ROS: 19:21 ENT: Negative for injury, pain, and discharge, Neck: Negative for injury, pain, and kb swelling, Cardiovascular: Negative for chest pain, palpitations, and edema, Respiratory: Negative for shortness of breath, cough, wheezing, and pleuritic chest pain, Neuro: Negative for headache, weakness, numbness, tingling, and seizure. 19:21 Constitutional: Positive for body aches, chills, fatigue, fever, malaise, Negative for poor PO intake, weight loss. 19:21 Abdomen/GI: Positive for nausea, vomiting, and diarrhea, black/tarry stool, Negative for abdominal pain, constipation, abdominal cramps, abdominal distension, anorexia. 19:21 MS/extremity: Positive for pain, swelling, tenderness, warmth, of the left choudhury and medial aspect of left calf and left calf and lateral aspect of left calf. Exam: 19:21 Head/Face: Normocephalic, atraumatic. Chest/axilla: Normal chest wall appearance and kb motion. Nontender with no deformity. No lesions are appreciated. Cardiovascular: Regular rate and rhythm with a normal S1 and S2. No gallops, murmurs, or rubs. Normal PMI, no JVD. No pulse deficits. Respiratory: Lungs have equal breath sounds bilaterally, clear to auscultation and percussion. No rales, rhonchi or wheezes noted. No increased work of breathing, no retractions or nasal flaring. Abdomen/GI: Soft, non-tender, with normal bowel sounds. No distension or tympany. No guarding or rebound. No evidence of tenderness throughout. Neuro: Awake and alert, GCS 15, oriented to person, place, time, and situation. Cranial nerves II-XII grossly intact. Motor strength 5/5 in all extremities. Sensory grossly intact. Cerebellar exam normal. Normal gait. 19:21 Constitutional: The patient appears alert, awake, obviously ill. 19:21 Musculoskeletal/extremity: Extremities: grossly normal except: noted in the left choudhury and medial aspect of left calf and left calf and lateral aspect of left calf: erythema, pain, swelling, tenderness, ROM: intact in all extremities, Circulation is intact in all extremities. Sensation intact. Weight bearing: can bear weight with assistance only. 19:25 Skin: cellulitis, that is moderate, on the left choudhury and medial aspect of left calf kb and left calf and lateral aspect of left calf. Vital Signs: 16:56 BP 156 / 65; Pulse 89; Resp 18; Temp 101.2; Pulse Ox 100% on R/A; Weight 71.67 kg (R); aj1 Height 5 ft. 2 in. (157.48 cm); Pain 10/10; 18:13 BP 150 / 71; Pulse 94; Resp 16; Pulse Ox 98% on R/A; la1 19:15 BP 121 / 47; Pulse 92; Resp 18; Temp 102.9; Pulse Ox 98% on R/A; Pain 10/10; jb4 20:49 BP 104 / 49; Pulse 72; Resp 16; Temp 98.6(O); Pulse Ox 97% on R/A; jb4 21:30 BP 111 / 72; Pulse 76; Resp 16; Pulse Ox 100% on R/A; jb4 16:56 Body Mass Index 28.90 (71.67 kg, 157.48 cm) aj1 MDM: 17:03 Patient medically screened. kb 19:21 Data reviewed: vital signs, nurses notes. Data interpreted: Pulse oximetry: on room air kb is 98 %. Interpretation: normal. Counseling: I had a detailed discussion with the patient and/or guardian regarding: the historical points, exam findings, and any diagnostic results supporting the discharge/admit diagnosis, lab results, radiology results, the need to transfer to another facility, [facility] does not immediately have the required specialist. 19:29 ED course: Pt had episode of melena here, tested positive on guiac . kb 19:56 ED course: Spoke with Dr Sagastume (pt's senior physician at [place]). Accepts pt to [facility]. . 08/11 17:19 Order name: Basic Metabolic Panel 08/11 17:19 Order name: Blood Culture Adult (2) 08/11 17:19 Order name: CBC with Diff 08/11 17:19 Order name: Ckmb 08/11 17:19 Order name: CPK 08/11 17:19 Order name: Lactate; Complete Time: 18:19 kb 08/11 17:19 Order name: LFT's; Complete Time: 18:10 kb 08/11 17:19 Order name: Lipase; Complete Time: 18:10 kb 08/11 17:19 Order name: Procalcitonin; Complete Time: 18:30 kb 08/11 17:19 Order name: Protime (+inr); Complete Time: 18:10 kb 08/11 17:19 Order name: Ptt, Activated; Complete Time: 18:10 kb 08/11 17:19 Order name: Troponin (emerg Dept Use Only); Complete Time: 18:10 kb 08/11 17:19 Order name: Urine Microscopic Only; Complete Time: 21:23 kb 08/11 17:20 Order name: Flu; Complete Time: 18:11 kb 08/11 17:19 Order name: US Extremity Venous Unilateral Ltd; Complete Time: 18:54 kb 08/11 17:20 Order name: Basic Metabolic Panel; Complete Time: 18:10 EDMS 08/11 17:20 Order name: Blood Culture EDMS 08/11 17:20 Order name: CBC with Automated Diff; Complete Time: 18:30 EDMS 08/11 17:20 Order name: CKMB Creatine Kinase MB; Complete Time: 18:10 EDMS 08/11 17:20 Order name: Creatine Phosphokinase; Complete Time: 18:10 EDMS 08/11 18:03 Order name: CBC Smear Scan; Complete Time: 18:30 EDMS 08/11 18:20 Order name: CT Stone Protocol; Complete Time: 19:02 kb 08/11 18:22 Order name: AMMONIA kb 08/11 18:22 Order name: Ammonia; Complete Time: 19:02 EDMS 08/11 19:30 Order name: Guiac; Complete Time: 20:07 kb 08/11 21:20 Order name: Urine Culture EDMS 08/11 21:31 Order name: Lactate Sepsis 2 HR Follow-up EDMS 08/11 17:19 Order name: Accucheck; Complete Time: 18:01 kb 08/11 17:19 Order name: Cardiac monitoring; Complete Time: 17:42 kb 08/11 17:19 Order name: EKG - Nurse/Tech; Complete Time: 17:42 kb 08/11 17:19 Order name: IV Saline Lock - Large Bore; Complete Time: 17:42 kb 08/11 17:19 Order name: Labs collected and sent; Complete Time: 17:42 kb 08/11 17:19 Order name: O2 Per Protocol; Complete Time: 17:42 kb 08/11 17:19 Order name: O2 Sat Monitoring; Complete Time: 17:42 kb 08/11 17:19 Order name: Urine Dipstick-Ancillary (obtain specimen); Complete Time: 21:13 kb 08/11 17:36 Order name: EKG Electrocardiogram EDMS 08/11 19:06 Order name: Vital Signs; Complete Time: 19:14 kb Administered Medications: 17:41 CANCELLED (Other Intervention Used): Acetaminophen 1000 mg PO once la1 17:42 Drug: NS 0.9% (30 ml/kg) 30 ml/kg Route: IV; Rate: bolus; Site: right antecubital; la1 20:51 Follow up: Response: No adverse reaction; IV Status: Completed infusion jb4 18:01 Drug: Ibuprofen 600 mg Route: PO; la1 18:17 Follow up: Response: No adverse reaction la1 18:01 Drug: morphine 4 mg Route: IVP; Site: right antecubital; la1 18:17 Follow up: Response: No adverse reaction; Pain is decreased la1 18:01 Drug: Zofran 4 mg Route: IVP; Site: right antecubital; la1 18:17 Follow up: Response: No adverse reaction la1 19:07 Drug: Zosyn 3.375 grams Route: IVPB; Infused Over: 60 mins; Site: right antecubital; jb4 20:13 Follow up: Response: No adverse reaction; IV Status: Completed infusion jb4 19:16 Drug: morphine 4 mg Route: IVP; Site: right antecubital; jb4 20:51 Follow up: Response: No adverse reaction; Pain is decreased jb4 19:26 Drug: Tylenol 1000 mg Route: PO; jb4 20:50 Follow up: Response: No adverse reaction; Temperature is decreased jb4 20:13 Drug: vancoMYCIN 1 grams Route: IVPB; Infused Over: 2 hrs; Site: right antecubital; jb4 21:45 Follow up: Response: No adverse reaction; IV Status: Infusion continued upon transfer jb4 Disposition: 08/11/18 19:57 Transfer ordered to [facility]. Diagnosis are Sepsis, unspecified organism, Cellulitis of left lower limb, Gastrointestinal hemorrhage, unspecified, Melena. - Reason for transfer: Higher level of care. - Accepting physician is Mitesh. - Condition is Stable. - Problem is new. - Symptoms are unchanged. Addendum: 08/16/2018 08:07 Co-signature as Attending Physician, Kwaku Sanz MD I agree with the assessment and c lynn plan of care. Signatures: Dispatcher [employer] Ernestina Smith, [employer]-Lisbeth SEAT COVERER-CkAleja Jara, RN RN aj1 Kwaku Sanz MD MD cha Attema, Lee, RN RN la1 Jonathan Marroquin RN RN jb4 Corrections: (The following items were deleted from the chart) 08/11 17:41 17:19 Acetaminophen 1000 mg PO once ordered. valentine la1 21:51 19:57 08/11/2018 19:57 Transfer ordered to [facility] [place] [facility]. jb4 Diagnosis is Sepsis, unspecified organism; Cellulitis of left lower limb; Gastrointestinal hemorrhage, unspecified; Melena. Reason for transfer: Higher level of care. Accepting physician is Mitesh. Condition is Stable. Problem is new. Symptoms are unchanged. kb
--- NOTE | 2018-08-11 19:58 | ER ---
Nurse's Notes [facility] Name: Leigh Hammonds Age: 62 yrs Sex: Female : 1955 Arrival Date: 08/11/2018 Time: 16:29 Bed 15 Private MD: out of town, doctor Diagnosis: Sepsis, unspecified organism;Cellulitis of left lower limb;Gastrointestinal hemorrhage, unspecified;Melena Presentation: 08/11 16:50 Presenting complaint: Patient states: "I think I have the flu." Reports fever TMax 103, aj1 nausea, vomiting for the past 3 days. Last night redness and swelling to her left leg. Reports pain with weight bearing. Denies diarrhea, cough, congestion. States that she was seen at [facility] and they told her that she needed to come to the emergency room to be seen. Transition of care: patient was not received from another setting of care. Onset of symptoms was August 11, 2018. Risk Assessment: Do you want to hurt yourself or someone else? Patient reports no desire to harm self or others. Initial Sepsis Screen: Does the patient meet any 2 criteria? HR > 90 bpm. No. Patient's initial sepsis screen is negative. Does the patient have a suspected source of infection? Yes: Skin breakdown/wound. Care prior to arrival: None. 16:50 Method Of Arrival: Wheelchair aj1 16:50 Acuity: OVI 3 aj1 18:13 Acuity: OVI 2 la1 Triage Assessment: 16:56 General: Appears in no apparent distress. uncomfortable, Behavior is calm, cooperative, aj1 appropriate for age. Pain: Complains of pain in left leg Pain currently is 10 out of 10 on a pain scale. Neuro: Level of Consciousness is awake, alert, obeys commands. Cardiovascular: Patient's skin is warm and dry. Respiratory: Airway is patent Respiratory effort is even, unlabored, Respiratory pattern is regular, symmetrical. Historical: - Allergies: 16:55 Codeine; aj1 - Home Meds: 16:55 trulisity for Diabetes [Active]; metformin 1500 mg Oral tab 2 tabs 2 times per day aj1 [Active]; levothyroxine 100 mcg oral tab [Active]; Avalide 150-12.5 mg Oral tab 1 tab once daily [Active]; - PMHx: 16:55 Diabetes - NIDDM; Hypertension; Hypothyroidism; aj1 16:56 Cirrhosis; aj1 - Immunization history:: Flu vaccine is up to date. - Social history:: Smoking status: Patient/guardian denies using tobacco. - Ebola Screening: : Patient denies travel to an Ebola-affected area in the 21 days before illness onset. Screenin:24 Abuse screen: Denies threats or abuse. Nutritional screening: No deficits noted. la1 Tuberculosis screening: No symptoms or risk factors identified. Fall Risk None identified. Assessment: 17:21 General: Appears in no apparent distress. ill, Behavior is cooperative. Pain: Complains la1 of pain in lateral aspect of left calf, left calf, medial aspect of left calf and left choudhury. Neuro: Level of Consciousness is awake, alert, obeys commands, Oriented to person, place, time, situation. Cardiovascular: Capillary refill < 3 seconds Patient's skin is warm and dry. Respiratory: Airway is patent Trachea midline Respiratory effort is even, unlabored, Respiratory pattern is regular, symmetrical, Breath sounds are clear bilaterally. GI: No signs and/or symptoms were reported involving the gastrointestinal system. : No signs and/or symptoms were reported regarding the genitourinary system. Musculoskeletal: Circulation, motion, and sensation intact. Capillary refill < 3 seconds, Swelling present in left leg redness and swelling to left lower extremity with pain. 18:15 Reassessment: BRO Do notified of critical lab value. Lactate 3.1. ss 18:39 Reassessment: pt had BM on bedside commode, stool appears dark and runny, positive for la1 occult blood. ERP notified, new orders received. 19:07 Reassessment: Patient appears in no apparent distress at this time. Patient and/or jb4 family updated on plan of care and expected duration. Pain level reassessed. Patient is alert, oriented x 3, equal unlabored respirations, skin warm/dry/pink. Cardiovascular: Patient's skin is warm and dry. Respiratory: Airway is patent Respiratory effort is even, unlabored, Respiratory pattern is regular, symmetrical. 20:49 Reassessment: Patient appears in no apparent distress at this time. Patient and/or jb4 family updated on plan of care and expected duration. Pain level reassessed. Patient is alert, oriented x 3, equal unlabored respirations, skin warm/dry/pink. Patient states feeling better. 21:50 Reassessment: Patient appears in no apparent distress at this time. Patient and/or jb4 family updated on plan of care and expected duration. Pain level reassessed. Patient is alert, oriented x 3, equal unlabored respirations, skin warm/dry/pink. Vital Signs: 16:56 BP 156 / 65; Pulse 89; Resp 18; Temp 101.2; Pulse Ox 100% on R/A; Weight 71.67 kg (R); aj1 Height 5 ft. 2 in. (157.48 cm); Pain 10/10; 18:13 BP 150 / 71; Pulse 94; Resp 16; Pulse Ox 98% on R/A; la1 19:15 BP 121 / 47; Pulse 92; Resp 18; Temp 102.9; Pulse Ox 98% on R/A; Pain 10/10; jb4 20:49 BP 104 / 49; Pulse 72; Resp 16; Temp 98.6(O); Pulse Ox 97% on R/A; jb4 21:30 BP 111 / 72; Pulse 76; Resp 16; Pulse Ox 100% on R/A; jb4 16:56 Body Mass Index 28.90 (71.67 kg, 157.48 cm) aj1 ED Course: 16:29 Patient arrived in ED. mr 16:29 out of town, doctor is Private Physician. mr 16:53 Triage completed. aj1 16:56 Arm band placed on Patient placed in waiting room, Patient notified of wait time. aj1 17:02 Ernestina Dickinson FNP-C is [facility]. kb 17:02 Kwaku Sanz MD is Attending Physician. kb 17:15 First set of blood cultures drawn by me. jb1 17:21 Ramez Barahona, RN is Primary Nurse. la1 17:24 Call light in reach. Side rails up X 1. Pulse ox on. NIBP on. la1 17:30 Second set of blood cultures drawn by me. jb1 17:34 EKG done, by photogrammetric technician. reviewed by Ernestina LIANG. sm3 17:40 Initial lab(s) drawn, by me, sent to lab. Flu and/or RSV swab sent to lab. Inserted jb1 saline lock: 22 gauge in right antecubital area, using aseptic technique. Blood collected. 18:31 US Extremity Venous Unilateral Ltd In Process Unspecified. EDMS 18:49 CT completed. Patient tolerated procedure well. Patient moved back from CT. nj 18:49 CT Stone Protocol In Process Unspecified. EDMS 21:50 No provider procedures requiring assistance completed. jb4 21:50 Patient transferred, IV remains in place. jb4 Administered Medications: 17:41 CANCELLED (Other Intervention Used): Acetaminophen 1000 mg PO once la1 17:42 Drug: NS 0.9% (30 ml/kg) 30 ml/kg Route: IV; Rate: bolus; Site: right antecubital; la1 20:51 Follow up: Response: No adverse reaction; IV Status: Completed infusion jb4 18:01 Drug: Ibuprofen 600 mg Route: PO; la1 18:17 Follow up: Response: No adverse reaction la1 18:01 Drug: morphine 4 mg Route: IVP; Site: right antecubital; la1 18:17 Follow up: Response: No adverse reaction; Pain is decreased la1 18:01 Drug: Zofran 4 mg Route: IVP; Site: right antecubital; la1 18:17 Follow up: Response: No adverse reaction la1 19:07 Drug: Zosyn 3.375 grams Route: IVPB; Infused Over: 60 mins; Site: right antecubital; jb4 20:13 Follow up: Response: No adverse reaction; IV Status: Completed infusion jb4 19:16 Drug: morphine 4 mg Route: IVP; Site: right antecubital; jb4 20:51 Follow up: Response: No adverse reaction; Pain is decreased jb4 19:26 Drug: Tylenol 1000 mg Route: PO; jb4 20:50 Follow up: Response: No adverse reaction; Temperature is decreased jb4 20:13 Drug: vancoMYCIN 1 grams Route: IVPB; Infused Over: 2 hrs; Site: right antecubital; jb4 21:45 Follow up: Response: No adverse reaction; IV Status: Infusion continued upon transfer jb4 Outcome: 19:57 ER care complete, transfer ordered by MD. grijalva 21:50 Transferred to [facility]. jb4 21:50 Condition: stable 21:50 Discharge instructions given to patient, friend, Instructed on the need for transfer, Demonstrated understanding of instructions. 21:51 Patient left the ED. jb4 Signatures: Dispatcher [employer] EDJames Go jb1 Ernestina Dickinson, SLAG WHEELER-C SLAG WHEELER-Ckb Aleja Moreland, RN RN aj1 Alba YostNeeru burnett, PATRICIA RN ss Ramez Barahona RN RN la1 Jonathan Marroquin RN RN jb4 Radhames Gonzales Shakira 3 Corrections: (The following items were deleted from the chart) 20:52 20:49 Reassessment: Patient appears in no apparent distress at this time. Patient jb4 and/or family updated on plan of care and expected duration. Pain level reassessed. Patient is alert, oriented x 3, equal unlabored respirations, skin warm/dry/pink. jb4 20:53 20:49 BP 104 / 49; Pulse 72bpm; Resp 16bpm; Pulse Ox 97% RA; jb4 jb4
--- NOTE | 2018-08-11 20:55 | EKG ---
Test Date: 2018-08-11 Test Time: 17:30:28 Speeder Hand: TWIN MEASUREMENT RESULTS: Intervals: Rate: 94 WI: 150 QRSD: 80 QT: 328 QTc: 410 [place]: P: 66 WI: 150 QRS: 29 T: 64 INTERPRETIVE STATEMENTS: Normal sinus rhythm Normal ECG No previous ECG available for comparison Electronically Signed On 08-11-18 20:54:31 SNOWBLOWER MECHANIC by Cassius Diaz
[2018-08-11 21:19] LABS: Urine Bacteria 20-50 /HPF (<20); Urine Culture Reflex Order REFLEXED; Urine RBC <5 /HPF (NONE SEEN)
== END 2018-08-11 21:51 | disposition short-term general hospital (02) ==
LOC: ER 16:24
DX: A41.9 Sepsis, unspecified organism (principal); K92.1 Melena; I10 Essential (primary) hypertension; E11.9 Type 2 diabetes mellitus without complications; E03.9 Hypothyroidism, unspecified; Z88.5 Allergy status to narcotic agent
CPT/HCPCS: 36415; 74176; 76377; 80048; 80076; 81015; 82140; 82272; 82550; 82553; 82962; 83605; 83690; 84145; 84484; 85025; 85610; 85730; 87040; 87077; 87086; 87088; 87186; 87205; 87804; 93005; 93971; 96365; 96366; 96367; 96375; 99285; J2405; J2543; J3010; J3370; J7030

== ENCOUNTER 2020-12-30 20:23 | Emergency (ER) | payer OTHER ==
--- OUTSIDE RECORDS SUMMARY | 2020-12-30 20:25 | XMS REPORT | Continuity of Care Document ---
:1955 Author Organization [facility] t Address [address] [place] [address] Care Team Providers Name Role Phone Asked, Pcp Primary Care Physician Unavailable Sara Serrano MD Attending Clinician Payers Payer Name Policy Type Policy Effective Date Expiration Date Sour Number AETNAAETNA [id number] 2018 [employer] HMO,POS,EPO, 00:00:00 Master FONTAINE/[id number] /09/2017-[facility] [place] Problems This patient has no known problems. Allergies, Adverse Reactions, Alerts This patient has no known allergies or adverse reactions. Social History Social Habit Start Date Stop Date Quantity Comments Source Sex Assigned At [birth year] [facility] ethodist 00:00:00 00:00:00 Medications This patient has no known medications. Procedures Procedure Date / Time Performed Performing Clinician Yazanc e US ABDOMEN COMPLETE 2020-05-07 11:40:00 Cody Serrano Plan of Care Planned Activity Planned Date Details Comments Source Future Scheduled 2021-04-21 INFLUENZA VACCINE Bryn mota [facility] 00:00:00 [code = INFLUENZA VACCINE] Future Scheduled 2006 BREAST CANCER [facility] thodist Test 00:00:00 SCREENING [code = BREAST CANCER SCREENING] Future Scheduled 2006 COLONOSCOPY SCREENING Magan zambrano [facility] Test 00:00:00 [code = COLONOSCOPY SCREENING] Future Scheduled 2006 SHINGLES VACCINES (#1) H betina [facility] Test 00:00:00 [code = SHINGLES VACCINES (#1)] Future Scheduled 1977 Screening for Vel[facility] thodist Test 00:00:00 malignant neoplasm of cervix (procedure) [code = 330465814] Future Scheduled 1974 Hepatitis C screening [place] [facility] 00:00:00 (procedure) [code = 943080143] Future Scheduled 1972 COVID-19 VACCINE (1) Layo ston [facility] Test 00:00:00 [code = COVID-19 VACCINE (1)] Future Scheduled 1966 DIABETES: RETINAL EYE [place] [facility] 00:00:00 EXAM [code = DIABETES: RETINAL EYE EXAM] Future Scheduled 1966 DIABETIC FOOT EXAM [place] [facility] 00:00:00 [code = DIABETIC FOOT EXAM] Future Scheduled 1966 URINE MICROALBUMIN [place] [facility] 00:00:00 [code = URINE MICROALBUMIN] Encounters Start End Encounter Admission Attending Care Care Encounter Source Date/Time Date/Time Type Type Clinicians Facility Department ID 2019-05-02 Inpatient [facility] [id number] [facility] 16:17:03 2019-01-24 Outpatient [facility] [id number] [facility] 12:59:04 2020-12-12 2020-12-12 Outpatient [facility] [id number] [facility] 09:25:00 09:25:00 2020-07-05 2020-07-05 Outpatient [facility] [id number] [facility] 10:03:00 10:03:00 2020-05-07 2020-05-07 Outpatient [facility] [id number] [place] [address] 00:00:00 00:00:00 [facility] [address] 2020-03-06 2020-03-06 Outpatient [facility] [id number] [facility] 12:40:00 12:40:00 2019-07-06 2019-07-06 Outpatient [facility] [id number] [facility] 11:29:00 11:29:00 2019-06-23 2019-06-23 Outpatient [facility] [id number] [facility] 14:59:00 14:59:00 2019-05-03 2019-05-03 Outpatient [facility] [id number] [facility] 12:18:00 12:18:00 2018-09-27 2018-09-27 Outpatient [facility] [id number] [facility] 07:18:00 07:18:00 Results Test Description Test Time Test Comments Results Result [facility] e Comments US Abdomen 2020-04-21 Ron Squires Complete 7 Radiology Results David baker 13:02:30 - 05/07/2020 1:05 PM CDT EXAM: US ABDOMEN COMPLETECLINICAL DATA: R16.1 Splenomegaly not elsewhere classified, SplenomegalyTECHNIQUE : Sonographic evaluation of the abdomen was performed.COMPARISON: NONE.IMPRESSION:1.Coa rse hepatic echotexture and undulating contour suggestive of cirrhosis. There are no discrete lesions. There is no evidence of intrahepatic biliary ductal dilation The common bile duct has normal caliber. The portal vein is patent with normal hepatopetal flow. 2.Cholelithiasis without evidence of cholecystitis.3.Limit ed views of the pancreas are unremarkable. 4.The kidneys are normal size. The kidneys have normal echogenicity. Vascular flow is unremarkable. There is no evidence of hydronephrosis, perinephric fluid, mass or calculus.5.The spleen is enlarged measuring up to 15.5 cm. 6.No evidence of ascites.7.Visualized aorta and IVC are unremarkable. [id number]
[2020-12-30] MEDS ORDERED: HYDROCODONE/APAP 7.5/325 MG TAB ONE (21:52)
--- NOTE | 2020-12-30 22:08 | ER ---
Nurse's Notes [facility] Name: Leigh Hammonds Age: 65 yrs Sex: Female : 1955 Arrival Date: 12/30/2020 Time: 20:26 Bed 26 Private MD: Diagnosis: Right distal radius fracture Presentation: 12/30 20:43 Chief complaint: Patient states: she tripped over her dog and fell injuring her right bb wrist. Coronavirus screen: At this time, the client does not indicate any symptoms associated with coronavirus-19. Ebola Screen: No symptoms or risks identified at this time. Initial Sepsis Screen: Does the patient meet any 2 criteria? No. Patient's initial sepsis screen is negative. Does the patient have a suspected source of infection? No. Patient's initial sepsis screen is negative. Risk Assessment: Do you want to hurt yourself or someone else? Patient reports no desire to harm self or others. Onset of symptoms was December 30, 2020. 20:43 Method Of Arrival: Ambulatory bb 20:43 Acuity: OVI 4 bb Triage Assessment: 20:45 General: Appears uncomfortable, Behavior is calm, cooperative. Pain: Complains of pain bb in right wrist Pain currently is 9 out of 10 on a pain scale. Neuro: Level of Consciousness is awake, alert, obeys commands, Oriented to person, place, time, situation. Cardiovascular: No deficits noted. Respiratory: Respiratory effort is even, unlabored, Respiratory pattern is regular. Derm: Skin is pink, warm \T\ dry. Musculoskeletal: Swelling present in right wrist Reports pain in right wrist. Historical: - Allergies: 20:45 Codeine; bb - PMHx: 20:45 Cirrhosis; Diabetes - NIDDM; Hypertension; Hypothyroidism; bb - Immunization history:: Adult Immunizations up to date. - Social history:: Smoking status: Patient denies any tobacco usage or history of. Screenin:50 Abuse screen: Denies threats or abuse. Nutritional screening: No deficits noted. bb Tuberculosis screening: No symptoms or risk factors identified. Fall Risk None identified. Assessment: 20:50 Reassessment: No changes from previously documented assessment. see triage assessment. bb 23:02 Reassessment: Patient is alert, oriented x 3, equal unlabored respirations, skin bb warm/dry/pink. Kwaku RAMIREZ at bedside for evaluation of splint pt okay for discharge. Pt verbalized understanding of and agrees to plan of care discharge instructions given pt ambulated with steady gait to exit accompanied by family. Vital Signs: 20:43 BP 134 / 63; Pulse 61; Resp 16 S; Temp 98(O); Pulse Ox 100% on R/A; Weight 75.75 kg bb (R); Height 5 ft. 3 in. (160.02 cm) (R); Pain 9/10; 22:50 BP 132 / 65; Pulse 55; Resp 16 S; Temp 97.5(O); Pulse Ox 98% on R/A; bb 20:43 Body Mass Index 29.58 (75.75 kg, 160.02 cm) bb ED Course: 20:26 Patient arrived in ED. cl3 20:45 Triage completed. bb 20:45 Arm band placed on Patient placed in an exam room, on a stretcher, on pulse oximetry. bb X-ray ordered. Family accompanied patient. 20:50 Patient has correct armband on for positive identification. Call light in reach. Adult bb w/ patient. 20:50 No provider procedures requiring assistance completed. Patient did not have IV access bb during this emergency room visit. 20:56 Kwaku Lara PA is PHCP. cp 20:56 Arvin Joseph MD is Attending Physician. cp 21:32 XRAY Wrist RIGHT 3 view In Process Unspecified. EDMS 22:03 Lauren Castillo RN is Primary Nurse. bb 22:06 Piotr Lam MD is Referral Physician. cp Administered Medications: 21:20 Drug: Hydrocodone-Acetaminophen (7.5 mg-325 mg) 1 tabs {Note: RASS 0.} Route: PO; bb 23:01 Follow up: Response: No adverse reaction; Pain is decreased; RASS: Alert and Calm (0) bb Outcome: 22:07 Discharge ordered by . cp 23:04 Discharged to home ambulatory, with family. bb 23:04 Condition: stable 23:04 Discharge instructions given to patient, Instructed on discharge instructions, follow up and referral plans. medication usage, Demonstrated understanding of instructions, follow-up care, medications, splint care, Prescriptions given X 1. 23:04 Patient left the ED. bb Signatures: Dispatcher [employer]Ho[employer]braRest[employer] EDNY Lauren Castillo RN RN bb Kwaku Lara PA PA cp Ap, Ca cl3
--- NOTE | 2020-12-30 22:08 | EDPHYS ---
Physician Documentation [facility] Name: Leigh Hammonds Age: 65 yrs Sex: Female : 1955 Arrival Date: 12/30/2020 Time: 20:26 Bed 26 Private MD: ED Physician Arvin Joseph HPI: 12/30 21:15 This 65 yrs old Female presents to ER via Ambulatory with complaints of Fall cp Injury, Wrist Injury. 21:15 The patient or guardian reports decreased range of motion, injury, pain. The complaints cp affect the right wrist diffusely. Context: resulted from a fall, on an outstretched hand. 21:15 Onset: The symptoms/episode began/occurred today. Associated signs and symptoms: cp Pertinent negatives: cyanosis distally, numbness distally. Historical: - Allergies: 20:45 Codeine; bb - PMHx: 20:45 Cirrhosis; Diabetes - NIDDM; Hypertension; Hypothyroidism; bb - Immunization history:: Adult Immunizations up to date. - Social history:: Smoking status: Patient denies any tobacco usage or history of. ROS: 21:20 MS/extremity: Positive for injury or acute deformity, decreased range of motion, pain, cp swelling, tenderness, Negative for paresthesias. 21:20 Constitutional: Negative for chills, fever. cp 21:20 Neck: Negative for pain with movement, pain at rest, stiffness. 21:20 Cardiovascular: Negative for chest pain. 21:20 Respiratory: Negative for cough, shortness of breath, wheezing. 21:20 Abdomen/GI: Negative for abdominal pain, nausea, vomiting, and diarrhea. 21:20 Back: Negative for pain at rest, pain with movement. 21:20 Neuro: Negative for altered mental status, headache, loss of consciousness, syncope, weakness. 21:20 All other systems are negative. Exam: 21:25 Constitutional: The patient appears in no acute distress, alert, awake, cp non-diaphoretic, non-toxic, well developed, well nourished. 21:25 Hand exam: Exam is positive for bony tenderness, ecchymosis, pain, swelling, cp tenderness, ROM: limited passive range of motion due to pain, in the right wrist, Perfusion: the extremity is normally perfused throughout, sensation intact. 21:25 Skin: cellulitis, is not appreciated, no rash present. intact with no open wounds. 21:25 Head/Face: Normocephalic, atraumatic. Vital Signs: 20:43 BP 134 / 63; Pulse 61; Resp 16 S; Temp 98(O); Pulse Ox 100% on R/A; Weight 75.75 kg bb (R); Height 5 ft. 3 in. (160.02 cm) (R); Pain 9/10; 22:50 BP 132 / 65; Pulse 55; Resp 16 S; Temp 97.5(O); Pulse Ox 98% on R/A; bb 20:43 Body Mass Index 29.58 (75.75 kg, 160.02 cm) bb Procedures: 23:05 Splinting: Splint applied to right wrist using Orthoglass splint, sling, sugar tong cp type. applied by tech. Examined by me, post splint application: neurovascular intact, Patient tolerated well. MDM: 21:01 Patient medically screened. cp 21:25 Differential diagnosis: dislocation, open fracture, closed fracture, sprain. cp 22:05 Data reviewed: vital signs, nurses notes, radiologic studies, plain films. cp 22:05 Test interpretation: by ED physician or midlevel provider: plain radiologic studies. cp Counseling: I had a detailed discussion with the patient and/or guardian regarding: the historical points, exam findings, and any diagnostic results supporting the discharge/admit diagnosis, radiology results, the need for outpatient follow up, for definitive care, a orthopedic surgeon, to return to the emergency department if symptoms worsen or persist or if there are any questions or concerns that arise at home. Response to treatment: the patient's symptoms have markedly improved after treatment. ED course: xrays of right wrist show distal radius fracture. 12/30 20:47 Order name: XRAY Wrist RIGHT 3 view bb 12/30 21:31 Order name: Sugar Tong Forearm Splint; Complete Time: 23:01 cp 12/30 21:31 Order name: Sling; Complete Time: 23:01 cp Administered Medications: 21:20 Drug: Hydrocodone-Acetaminophen (7.5 mg-325 mg) 1 tabs {Note: RASS 0.} Route: PO; bb 23:01 Follow up: Response: No adverse reaction; Pain is decreased; RASS: Alert and Calm (0) bb Disposition: 23:05 Chart complete. cp 12/31 06:08 Co-signature as Attending Physician, Arvin Joseph MD. ma2 Disposition: 12/30/20 22:07 Discharged to Home. Impression: Right distal radius fracture. - Condition is Stable. - Discharge Instructions: Wrist Fracture Treated With Immobilization. - Prescriptions for Ultracet 37.5- 325 mg Oral Tablet - take 1 tablet by ORAL route every 6 hours - for up to 5 days; do not exceed 8 tablets per day.; 20 tablet. - Medication Reconciliation Form, Thank You Letter, Antibiotic Education, Prescription Opioid Use form. - Follow up: Piotr Lam MD; When: 2 - 3 days; Reason: Recheck today's complaints. - Problem is new. - Symptoms have improved. Signatures: Dispatcher [employer] Lauren Wood RN RN bb Kwaku Lara PA PA cp Alzahri, Mohammad, MD MD ma2 Corrections: (The following items were deleted from the chart) 12/30 23:04 22:07 12/30/2020 22:07 Discharged to Home. Impression: Right distal radius fracture. bb Condition is Stable. Prescriptions for Ultracet 37.5-325 mg Oral Tablet - take 1 tablet by ORAL route every 6 hours - for up to 5 days; do not exceed 8 tablets per day.; 20 tablet. and Forms are Medication Reconciliation Form, Thank You Letter, Antibiotic Education, Prescription Opioid Use. Follow up: Piotr Lam; When: 2 - 3 days; Reason: Recheck today's complaints. Problem is new. Symptoms have improved. cp
[2020-12-31 00:29] VITALS: BP 134/63; TEMP 98; O2SAT 100
--- NOTE | 2020-12-31 07:54 | RAD REPORT ---
EXAM DESCRIPTION: RAD - Wrist Right 3 View - 12/30/2020 9:32 pm CLINICAL HISTORY: Right wrist pain status post injury FINDINGS: A minimally displaced fracture involves the distal right radius which extends intraarticul devang. No dislocation seen
== END 2020-12-30 23:04 | disposition home or self-care (01) ==
LOC: ER 20:23
PROC: 2W3CX1Z Immobilization of Right Lower Arm using Splint (ICD-10-PCS; principal; 2020-12-30)
DX: S52.501A Unspecified fracture of the lower end of right radius, initial encounter for closed fracture (principal); W19.XXXA Unspecified fall, initial encounter; Y93.9 Activity, unspecified; Y92.9 Unspecified place or not applicable; Z88.5 Allergy status to narcotic agent; I10 Essential (primary) hypertension
CPT/HCPCS: 99284

== ENCOUNTER 2023-03-09 13:50 | Emergency (ER) | payer BC, OTHER ==
[2023-03-09] MEDS ORDERED: MORPHINE 4 MG/ML SYR ONE (14:27)
[2023-03-09] MEDS ORDERED: ONDANSETRON 4 MG/2 ML VIAL ONE (14:27)
[2023-03-09 14:41] LABS: Specific Gravity 1.005 (1.005-1.030); Urine Bilirubin NEGATIVE (Negative); Urine Blood Negative (Negative); Urine Clarity Clear (Clear); Urine Color Colorless (Yellow); Urine Glucose 4+ (Over) (Negative); Urine Protein NEGATIVE (Negative); Urine Urobilinogen Normal (Normal)
--- NOTE | 2023-03-09 14:59 | RAD REPORT ---
EXAM DESCRIPTION: CT - Abdomen Pelvis Wo Contrast - 03/09/2023 2:32 pm CLINICAL HISTORY: FLANK PAIN COMPARISON: Stone Protocol dated 08/11/2018 TECHNIQUE: Thin cut axial CT imaging of the abdomen and pelvis was performed without IV contrast. Mu ltiplanar reformats were generated and reviewed. All CT scans are performed using dose optimization technique as appropriate and may include automated exposure control or mA/KV adjustment according to patient size. FINDINGS: No suspicious findings in the lung bases. The liver demonstrates nodular contour with some caudate lobe hypertrophy. Spleen is enlarged, measur ing 15.8 centimeter. Splenorenal varicosities, and nodular soft tissue densities along the right lowe r retroperitoneum, which are favored to relate to right gonadal varicosities, stable. Adrenal glands and pancreas show no suspicious findings. Gallbladder shows small layering calculi near the fundus. N o evidence of intra or extrahepatic biliary ductal dilation. . Symmetric renal contour, again with mild atrophic changes without suspicious parenchymal findings wit hin limits of noncontrast technique. No evidence of radiopaque calculi or hydroureteronephrosis. No dilated bowel loops or bowel wall thickening. No free air or inflammatory stranding. Small volume pelvic ascites. Diastasis recti. No hernia, mass or bulky lymphadenopathy. The urinary bladder is wit hout significant finding. No suspicious bony findings. IMPRESSION: No acute intra-abdominal process. Stigmata of cirrhosis and portal hypertension. Mild free pelvic ascites. Stable splenomegaly. Cholelithiasis.
[2023-03-09 15:16] LABS: Absolute Lymphocytes (CBC) 0.7 K/uL (0.7-4.9); Lymphocytes % 17.1 % (15.3-44.8); MCV 93.1 fL (80-100); MPV 8.3 fL (7.6-11.3); RBC Red Blood Cell Count 3.65 M/uL (3.86-4.86)
[2023-03-09 15:24] LABS: Albumin 3.7 g/dL (3.4-5.0); Bilirubin Total 0.8 mg/dL (0.2-1.0); Potassium 3.7 mEq/L (3.5-5.1); Protein, Total 7.5 g/dL (6.4-8.2)
--- NOTE | 2023-03-09 15:34 | ER ---
Nurse's Notes [facility] Name: Leigh Hammonds Age: 67 yrs Sex: Female : 1955 Arrival Date: 03/09/2023 Time: 13:50 Bed 10 Private MD: Diagnosis: Musculoskeletal back pain, known renal insufficiency, known cirrhosis Presentation: 03/09 14:01 Chief complaint: Patient states: mid-low right sided back pain that began on Thursday. Pt aa5 reports nausea. Onset of symptoms was February 2023. 14:01 Acuity: OVI 4 aa5 14:01 Coronavirus screen: nausea. Ebola Screen: Patient denies travel to an Ebola-affected [place] area in the 21 days before illness onset. Initial Sepsis Screen: Does the patient meet any 2 criteria? No. Patient's initial sepsis screen is negative. Does the patient have a suspected source of infection? No. Patient's initial sepsis screen is negative. Risk Assessment: Do you want to hurt yourself or someone else? Patient reports no desire to harm self or others. 14:01 Method Of Arrival: Ambulatory aa5 14:17 Acuity: OVI 3 mb9 Historical: - Allergies: 14:01 Codeine; aa5 - PMHx: 14:01 Cirrhosis; Diabetes - NIDDM; Hypertension; Hypothyroidism; aa5 Screenin:06 [facility] ED Fall Risk Assessment (Adult) History of falling in the last 3 months, mb9 including since admission No falls in past 3 months (0 pts) Confusion or Disorientation No (0 pts) Intoxicated or Sedated No (0 pts) Impaired Gait No (0 pts) Mobility Assist Device Used No (0 pt) Altered Elimination No (0 pt) Score/Fall Risk Level 0 - 2 = Low Risk Oriented to surroundings, Maintained a safe environment, Educated pt \T\ family on fall prevention, incl call for assistance when getting out of bed. Abuse screen: Denies threats or abuse. Nutritional screening: No deficits noted. Tuberculosis screening: No symptoms or risk factors identified. Assessment: 14:10 General: Appears uncomfortable. Pain: Complains of pain in back Pain does not radiate. mb9 Pain currently is 10 out of 10 on a pain scale. Quality of pain is described as throbbing, Pain began suddenly, Is continuous, Aggravated by increased activity. Neuro: Chiang Agitation-Sedation Scale (RASS): 0 - Alert and Calm Level of Consciousness is awake, alert, obeys commands, Oriented to person, place, time, situation, Appropriate for age. Cardiovascular: Patient's skin is warm and dry. Respiratory: Airway is patent Respiratory effort is even, unlabored, Respiratory pattern is regular, symmetrical. GI: Reports nausea. : Denies burning with urination. Derm: Skin is pink, warm \T\ dry. Musculoskeletal: Range of motion: intact in all extremities. 15:49 Reassessment: Patient and/or family updated on plan of care and expected duration. Pain mb9 level reassessed. Patient is alert, oriented x 3, equal unlabored respirations, skin warm/dry/pink. Patient states feeling better. Patient states symptoms have improved. Vital Signs: 14:01 BP 122 / 58; Pulse 64; Resp 18 S; Temp 98.1(TE); Pulse Ox 100% on R/A; Weight 74.39 kg aa5 (R); Height 5 ft. 3 in. (R); 15:49 BP 102 / 94; Pulse 74; Resp 16; Pulse Ox 100% on R/A; mb9 14:01 Body Mass Index 29.05 (74.39 kg, 160.02 cm) aa5 ED Course: 13:53 Patient arrived in ED. am2 13:53 Ernestina Dickinson [facility]C [facility]. kb 13:53 Kwaku Sanz MD is Attending Physician. kb 13:56 Duc Rothman MD is Attending Physician. sp3 13:59 Arm band placed on. aa5 14:01 Triage completed. aa5 14:04 Alba Bowers, PATRICIA is Primary Nurse. mb9 14:33 CT Abd/Pelvis - Without Contrast In Process Unspecified. EDMS 14:45 Inserted saline lock: 22 gauge in left forearm, using aseptic technique. mb9 14:54 Placed in gown. Bed in low position. Call light in reach. Side rails up X 1. Client mb9 placed on continuous cardiac and pulse oximetry monitoring. NIBP monitoring applied. 14:54 CBC with Diff Sent. mb9 14:54 CMP Sent. mb9 14:54 Lipase Sent. mb9 15:24 No provider procedures requiring assistance completed. mb9 15:49 IV discontinued, intact, bleeding controlled, No redness/swelling at site. Pressure mb9 dressing applied. Administered Medications: 14:48 Drug: Ondansetron IVP 4 mg Route: IVP; Site: left forearm; mb9 15:49 Follow up: Response: No adverse reaction mb9 14:54 Drug: morphine IVP or IV 4 mg Route: IVP; Infused Over: 4 mins; Site: left forearm; mb9 15:49 Follow up: Response: No adverse reaction mb9 Medication: 14:07 VIS not applicable for this client. mb9 Outcome: 15:34 Discharge ordered by . sp3 15:49 Discharged to home ambulatory. mb9 15:49 Condition: stable 15:49 Discharge instructions given to patient, Instructed on discharge instructions, follow up and referral plans. Demonstrated understanding of instructions, follow-up care, medications, Prescriptions given X 1. 15:50 Patient left the ED. mb9 Signatures: Dispatcher [employer] EDMS Ernestina Dickinson, COPY CHIEF-C COPY CHIEF-Jess Beaulieu RN RN aa5 Britta Ghosh am2 Duc Rothman MD MD sp3 Alba Bowers RN RN mb9 Corrections: (The following items were deleted from the chart) 14:03 14:01 Chief complaint: Patient states: right sided back pain that began on Thursday. aa5 aa5 14:04 14:01 BP 122 / 58; Pulse 64bpm; Resp 18bpm; Spontaneous; Pulse Ox 100% RA; Temp 98.1F aa5 Temporal; aa5
--- NOTE | 2023-03-09 15:34 | EDPHYS ---
Physician Documentation [facility] Name: Leigh Hammonds Age: 67 yrs Sex: Female : 1955 Arrival Date: 03/09/2023 Time: 13:50 Bed 10 Private MD: ED Physician Duc Rothman HPI: 03/09 14:17 This 67 yrs old Female presents to ER via Ambulatory with complaints of Flank Pain - sp3 right side. 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 She denies history of kidney stone, pulmonary pathology including prior pneumonia or pneumothorax or effusion, denies gross hematuria or prior kidney stone, or any other symptoms. She also denies headache, fever, URI symptoms, chest pain, shortness of breath, anterior abdominal pain, vomiting or diarrhea, rash, neuro symptoms, syncope, near syncope, prior aortic pathology, or any other signs or symptoms on review of systems at this time.. Historical: - Allergies: 14:01 Codeine; aa5 - PMHx: 14:01 Cirrhosis; Diabetes - NIDDM; Hypertension; Hypothyroidism; aa5 ROS: 14:18 Constitutional: Negative for fever, chills, and weight loss, Eyes: Negative for injury, sp3 pain, redness, and discharge, Neck: Negative for injury, pain, and swelling, Cardiovascular: Negative for chest pain, palpitations, and edema, Respiratory: Negative for shortness of breath, cough, wheezing, and pleuritic chest pain, MS/Extremity: Negative for injury and deformity, Skin: Negative for injury, rash, and discoloration, Neuro: Negative for headache, weakness, numbness, tingling, and seizure, Psych: Negative for depression, anxiety, suicide ideation, homicidal ideation, and hallucinations, Allergy/Immunology: Negative for hives, rash, and allergies, Endocrine: Negative for neck swelling, polydipsia, polyuria, polyphagia, and marked weight changes, Hematologic/Lymphatic: Negative for swollen nodes, abnormal bleeding, and unusual bruising. 14:18 All other systems are negative. Exam: 14:19 Constitutional: This is a well developed, well nourished patient who is awake, alert, sp3 and in no acute distress. Head/Face: Normocephalic, atraumatic. Eyes: Pupils equal round and reactive to light, extra-ocular motions intact. Lids and lashes normal. Conjunctiva and sclera are non-icteric and not injected. Cornea within normal limits. Periorbital areas with no swelling, redness, or edema. Neck: Trachea midline, no thyromegaly or masses palpated, and no cervical lymphadenopathy. Supple, full range of motion without nuchal rigidity, or vertebral point tenderness. No Meningismus. Chest/axilla: Normal chest wall appearance and motion. Nontender with no deformity. No lesions are appreciated. Cardiovascular: Regular rate and rhythm with a normal S1 and S2. No gallops, murmurs, or rubs. Normal PMI, no JVD. No pulse deficits. Respiratory: Lungs have equal breath sounds bilaterally, clear to auscultation and percussion. No rales, rhonchi or wheezes noted. No increased work of breathing, no retractions or nasal flaring. Abdomen/GI: Soft, non-tender, with normal bowel sounds. No distension or tympany. No guarding or rebound. No evidence of tenderness throughout. MS/ Extremity: Pulses equal, no cyanosis. Neurovascular intact. Full, normal range of motion. Neuro: Awake and alert, GCS 15, oriented to person, place, time, and situation. Cranial nerves II-XII grossly intact. Motor strength 5/5 in all extremities. Sensory grossly intact. Cerebellar exam normal. Normal gait. Psych: Awake, alert, with orientation to person, place and time. Behavior, mood, and affect are within normal limits. 14:19 Back: Pain to palpation in the musculature to the right of the spine and the latissimus dorsi region extending inferiorly and laterally. No bony tenderness. Pain is somewhat positional. Patient describes it as extremely sharp in nature.. Vital Signs: 14:01 BP 122 / 58; Pulse 64; Resp 18 S; Temp 98.1(TE); Pulse Ox 100% on R/A; Weight 74.39 kg aa5 (R); Height 5 ft. 3 in. (R); 15:49 BP 102 / 94; Pulse 74; Resp 16; Pulse Ox 100% on R/A; mb9 14:01 Body Mass Index 29.05 (74.39 kg, 160.02 cm) aa5 MDM: 13:54 Patient medically screened. kb 14:19 Data reviewed: vital signs, nurses notes, lab test result(s), radiologic studies. ED sp3 course: 67-year-old female with most likely musculoskeletal right-sided back pain. Differential diagnosis also includes kidney stone, UTI, pyelonephritis, other intestinal or vascular pathology although much lower on the list. Patient is ambulatory and do not believe this is a nerve or neurological issue. Will obtain CT scan of the abdomen pelvis noncontrast, laboratory values and urinalysis. Morphine and Zofran have been ordered. NSAIDs contraindicated as well as contrast. Final disposition based on patient course and work-up.. 15:32 ED course: Patient is much improved after pain medication. CT demonstrates no sp3 significant abnormality other than known cirrhosis. Laboratory values also demonstrate no significant abnormality. Creatinine is at baseline at 2.6. Lipase mildly elevated but is not the etiology behind her symptoms. We will safely discharge her home on tramadol and she can follow-up with her PCP.. 03/09 14:14 Order name: CBC with Diff; Complete Time: 15:27 sp3 03/09 14:14 Order name: CMP; Complete Time: 15:27 sp3 03/09 14:14 Order name: Lipase; Complete Time: 15:27 sp3 03/09 14:14 Order name: Urinalysis w/ reflexes; Complete Time: 15:17 sp3 03/09 14:14 Order name: CT Abd/Pelvis - Without Contrast; Complete Time: 15:17 sp3 03/09 14:14 Order name: IV Saline Lock; Complete Time: 14:54 sp3 03/09 14:14 Order name: Labs collected and sent; Complete Time: 14:54 sp3 Administered Medications: 14:48 Drug: Ondansetron IVP 4 mg Route: IVP; Site: left forearm; mb9 15:49 Follow up: Response: No adverse reaction mb9 14:54 Drug: morphine IVP or IV 4 mg Route: IVP; Infused Over: 4 mins; Site: left forearm; mb9 15:49 Follow up: Response: No adverse reaction mb9 Disposition Summary: 03/09/23 15:34 Discharge Ordered Location: Home sp3 Condition: Stable sp3 Diagnosis - Musculoskeletal back pain, known renal insufficiency, known cirrhosis sp3 Followup: sp3 - With: Private Physician - When: Upon discharge from the Emergency Department - Reason: Continuance of care Discharge Instructions: - Discharge Summary Sheet sp3 - Muscle Strain sp3 Forms: - Medication Reconciliation Form sp3 - Thank You Letter sp3 - Antibiotic Education sp3 - Prescription Opioid Use sp3 Prescriptions: - Tramadol 50 mg Oral Tablet - take 1 tablet by ORAL route every 8 hours as needed; 12 tablet; Refills: 0, sp3 Product Selection Permitted Signatures: Dispatcher [employer] EDMS Ernestina Dickinson, CAITLINC [employer]-Jess Beaulieu, RN RN aa5 Duc Rothman MD MD sp3 Alba Bowers RN RN mb9
[2023-03-09 15:59] VITALS: TEMP 98.1; O2SAT 100
[2023-03-09 16:09] VITALS: BP 102/94
== END 2023-03-09 15:50 | disposition home or self-care (01) ==
LOC: ER 13:50
DX: M54.9 Dorsalgia, unspecified (principal); K74.60 Unspecified cirrhosis of liver; E11.22 Type 2 diabetes mellitus with diabetic chronic kidney disease; I12.0 Hypertensive chronic kidney disease with stage 5 chronic kidney disease or end stage renal disease; N18.6 End stage renal disease; Z88.5 Allergy status to narcotic agent
CPT/HCPCS: 85025; 36415; 81003; 83690; 80053; 74176; 96375; 96374; 99284; J2405